=== PATIENT | female | born 1960 | race Caucasian/White ===

== ENCOUNTER → 2017-11-09 | Outpatient (CLI) | payer MEDICARE, MEDICAID ==
[~2017-11-09] MED LIST: ACCUNEB SO1.25 MG/1 INH; AMLODIPINE BESY10 MG PO; ASPIR 8181 MG PO; ATORVASTATIN CA40 MG PO; AZITHROMYCIN 2250 MG PO; BUTALB-APAP-CA1 EACH PO; CALCIUM 600 +1 EAC1 PO; CIPROFLOXACIN500 M1 PO; CLEOCIN HCL150 MG PO; CRESTOR40 MG PO; DICLOFENAC SODI75 MG PO; EFFEXOR XR75 MG PO; HYDROCHLOROTHIA25 M2 PO; HYDROCODONE-AP1 EAC6 PO; IBUPROFEN 800800 M1 PO; LISINOPRIL10 MG PO; MEDROLDOSEPACK PO; NAPROXEN DELAY500 M1 PO; NEURONTIN 300300 M1 PO; NORCO 5-325 TA1 EACH PO; ONDANSETRON HCL4 M2 PO; PAXIL10 MG PO; PEPCID20 MG PO; PRILOSEC 20 MG20 MG PO; PROMETHAZINE-C120 ML PO; REGLAN 10 MG TA10 MG PO; ROBAXIN 750 MG750 M1 PO; SYMBICORT160 MCG/4. INH; TESSALON PERLE100 MG PO
== END ==
LOC: M.RAD 09:27
DX: M47.816 Spondylosis without myelopathy or radiculopathy, lumbar region (principal); J44.9 Chronic obstructive pulmonary disease, unspecified; I10 Essential (primary) hypertension; M41.86 Other forms of scoliosis, lumbar region

== ENCOUNTER → 2017-11-15 | Outpatient (CLI) | payer MEDICARE, MEDICAID ==
[~2017-11-15] MED LIST changes: +TRAMADOL 50 MG50 MG PO
== END ==
LOC: M.MRI 07:59
DX: M48.061 Spinal stenosis, lumbar region without neurogenic claudication (principal); M54.16 Radiculopathy, lumbar region

== ENCOUNTER → 2017-11-25 | Outpatient (CLI) | payer MEDICARE, MEDICAID ==
--- NOTE | 2017-12-22 14:16 | PAINCON ---
[address] [address] PAIN MANAGEMENT CONSULTATION Name: RIAN JIMENEZ Room: [facility] EMILY Garcia#: [id number] Admission: 11/25/17 Attend Phys: Andreas Cochran MD Discharge: Date of : 62 Report #: [id number] THIS REPORT FOR: //name// CC: Suzanne Cochran DATE OF SERVICE: 11/25/2017 CHIEF COMPLAINT: Low back pain, which is more intense on the right side. HISTORY OF PRESENT ILLNESS: The patient is a 58-year-old female who has been referred to the Pain Clinic. She states that she is having pain and discomfort, which she describes as constant and aching. It involves her lower back with pain radiating to the left side as well as into the right. The patient states that she has not been able to take anti-inflammatory medications because of the side effects of swelling. She also has some problems with her kidneys. She has tried Tylenol, but does not find that this is a very helpful medication. She describes her pain as a 9/10. She feels that most activities worsen her pain. She feels that her pain is better when she is "lying down." She notes that the pain is more intense when she is lying on her left side. She has undergone an MRI, but has not discussed the findings of that test. ALLERGIES: No known drug allergies. CURRENT MEDICATIONS: Aspirin 81 mg, calcium, Tums 500 mg, Reglan, metoclopramide 10 mg, Crestor 40 mg, and venlafaxine 50 mg. PAST MEDICAL HISTORY: Hypertension, lung disease, stomach problems, emotional problems. PAST SURGICAL HISTORY: Stents placed in the right leg secondary to peripheral artery disease. SOCIAL HISTORY: She is disabled, has not worked since 2011. REVIEW OF SYSTEMS: Questionnaire indicates generally good health, recent weight changes, wears glasses, shortness of breath when walking on the flat, asthma, wheezing, back pain, depression, and insomnia. LABORATORY DATA: MRI of the lumbar spine dated 11/01/2017: 1. Foramen intact, mild broad-based disk bulge. Mild degenerative facet changes. 2. L4-L5, foramen intact. Mild broad-based disk bulging, moderate degenerative facet changes. 3. L5-S1, foramen widely patent, mild disk bulging. The bulging touches but does not compress the S1 nerve roots bilaterally. [place] [address] PAIN MANAGEMENT CONSULTATION Name: RIAN JIMENEZ Room: [facility]#: [id number] Admission: 11/25/17 Attend Phys: Andreas Cochran MD Discharge: Date of : 62 Report #: [id number] The upper SI joint is intact. PAIN CLINIC ASSESSMENT: 1. The patient states she is not being treated for osteoarthritis or rheumatoid arthritis. 2. Height 5 feet 0 inches, weight 170 pounds, BMI is 34. 3. Vital Signs: Blood pressure 144/82, heart rate 78, respiratory rate 16, room air saturation 95%, temperature 98.0. Pain intensity 9/10. 4. Fall risk: The patient has not fallen in the last 3 months. 5. Blood thinner: The patient is not on a blood thinning medication. 6. Hypertension: The patient states she was taken off lisinopril. Noted an increase in her potassium levels. 7. Opioid therapy greater than 6 weeks: The patient is not on opioid therapy. 8. Risk assessment tool. 9. Functional assessment tool. 10. Recreational drug use: The patient denies use of recreational drugs. 11. Tobacco use: The patient smokes 1 pack of cigarettes per day, has smoked for the last 20 years. 12. Alcohol: The patient denies use of alcoholic beverages on a regular basis. PHYSICAL EXAMINATION: GENERAL: The patient is a well-developed, well-nourished white female. She appears her stated age. She is alert and oriented x 3. Speech is fluent. HEENT: Normocephalic, atraumatic. Extraocular eye muscles intact. Sclerae nonicteric. Mucous membranes are moist. NECK: Without JVD or bruits. The patient states that she has been told she has a 40% blockage in her carotids. CHEST: Clear to auscultation. ABDOMEN: Nontender. Forward bending to 45 degrees causes increased back pain. Lumbar extension caused some increased pain and discomfort as well. The patient has some tattoos on the lower extremities. Left and right lateral rotation and left and right lateral bending cause some increased discomfort in the low back area. Muscle strength in the lower extremities is judged to be 4+ bilaterally. Deep tendon reflexes are +2, ankle reflexes +1. Upper extremity muscle strength is judged to be 4+/5 and biceps tendon reflexes +1. IMPRESSION: 1. Low back pain, myofascial. 2. Pulmonary emphysema. 3. Mixed hyperlipidemia. 4. Anxiety. 5. Essential hypertension. 6. Chronic fatigue syndrome. 7. Moderate episodes of recurrent major depressive disorder. 8. Peripheral vascular disease. 9. [place] [address] PAIN MANAGEMENT CONSULTATION Name: RIAN JIMENEZ Room: [facility]#: [id number] Admission: 11/25/17 Attend Phys: Andreas Cochran MD Discharge: Date of : 62 Report #: [id number] 10. Chronic tobacco use. RECOMMENDATION: We discussed treatment options with the patient. At this juncture, she has trigger points/myofascial pain in her low back area. We discussed the possible treatment of this. Her MRI does not show lumbar radicular symptoms. Most of her pain appears to be myofascial in nature. We have discussed the possibility of improving her condition through injections in the low back area with steroids and local anesthetics. The patient's MRI was pulled up on the computer. She and I reviewed it together. She will follow up in the future in the pain clinic at which time she will undergo injections for myofascial pain in the lower portion of her back. <ELECTRONICALLY SIGNED> By: Andreas Cochran MD 12/22/17 1416 1534 [id number] Cochran MD /[facility]
== END ==
LOC: M.PC 03:53
DX: M54.5 Low back pain (principal); J43.8 Other emphysema; E78.2 Mixed hyperlipidemia; F41.9 Anxiety disorder, unspecified; I10 Essential (primary) hypertension; R53.82 Chronic fatigue, unspecified; I73.9 Peripheral vascular disease, unspecified; R79.89 Other specified abnormal findings of blood chemistry

== ENCOUNTER → 2017-12-08 | Outpatient (CLI) | payer MEDICARE, MEDICAID | LOC: M.ULTRA 10:00 | DX: I25.10 Atherosclerotic heart disease of native coronary artery without angina pectoris (principal); I65.23 Occlusion and stenosis of bilateral carotid arteries; I70.8 Atherosclerosis of other arteries; I77.9 Disorder of arteries and arterioles, unspecified; J43.9 Emphysema, unspecified; Z78.0 Asymptomatic menopausal state ==

== ENCOUNTER → 2017-12-14 | Outpatient (CLI) | payer MEDICARE, MEDICAID ==
--- NOTE | 2017-12-22 14:16 | PAINCON ---
[address] [address] PAIN MANAGEMENT CONSULTATION Name: RIAN JIMENEZ [id number] Admission: 12/14/17 Attend Phys: Andreas Cochran MD Discharge: Date of : 62 Report #: [id number] THIS REPORT FOR: //name// CC: Suzanne Cochran DATE OF SERVICE: 12/14/2017 FOLLOWUP COMPLAINT: Pain in the left side greater than on the right. FOLLOWUP HISTORY: The patient is a 58-year-old female who has been referred to the pain clinic because of pain and discomfort in her low back area. Palpation in the lower portion of her back can reproduce her pain and discomfort. She has been using Tylenol and ibuprofen. She also has some problems with her kidneys. Rates her pain as a 8-9/10. Notes that her pain improves somewhat when she is lying down. Denies any trauma to her back. She notes pain and discomfort in the left posterior portion of her buttocks. She can place her finger, right on the area that is problematic. She has not had epidural steroid injections. She has not had back surgery. ALLERGIES: No known drug allergies. CURRENT MEDICATIONS: Aspirin 81 mg, calcium, Tums, Reglan, metoclopramide, Crestor 40 mg and venlafaxine 50 mg. PAIN CLINIC ASSESSMENT: 1. The patient is not being treated for osteoarthritis or rheumatoid arthritis. 2. Height 5 feet 0 inches, weight 177 pounds, BMI is 34. 3. Vital Signs: Blood pressure 124/76, heart rate 92, respiratory rate 16, room air saturation 95%, temperature 98.2. 4. Pain score 8/10. 5. Fall risk. The patient has not fallen in the last 3 months. 6. Blood thinner. The patient is not on a blood thinning medication. 7. Hypertension. The patient states that she was taken off her lisinopril that was secondary to an increase in potassium. 8. Opioid therapy greater than 6 weeks. The patient is not on an opioid therapy. 9. Risk assessment tool. The patient is low for use of opioid medications. 10. Functional assessment tool. 11. Recreational drug use. The patient denies use of recreational drugs. 12. Tobacco: The patient smokes 1 pack of cigarettes per day and has smoked for the last 20 years. 13. Alcohol: The patient denies use of alcoholic beverages on a regular basis. PHYSICAL EXAMINATION: GENERAL: The patient is a well-developed, well-nourished [place] [address] PAIN MANAGEMENT CONSULTATION Name: RIAN JIMENEZ Brandy Room: [facility]#: [id number] Admission: 12/14/17 Attend Phys: Andreas Cochran MD Discharge: Date of : 62 Report #: [id number] appears her stated age. She is alert and oriented x 3. Speech is fluent. HEENT: Normocephalic, atraumatic. Extraocular eye muscles intact. Sclerae nonicteric. The patient wears glasses. Mucous membranes are moist. NECK: Without JVD or bruits. The patient has been told that she does have a 40% blockage in her carotids. LUNGS: Clear to auscultation. ABDOMEN: Nontender. MUSCULOSKELETAL: Forward bending 45 degrees caused some increased back pain and discomfort. Palpation in the left low back area in the area of the posterior superior iliac spine and gluteus doreen/latissimus dorsi does reproduce the patient's pain and discomfort. Left and right lateral bending cause some increased discomfort in the low back area. Muscle strength in the lower muscle areas judged to be 5- bilaterally. IMPRESSION: 1. Low back pain, myofascial pain. 2. Pulmonary emphysema. 3. Hyperlipidemia. 4. Anxiety. 5. Essential hypertension. 6. Chronic fatigue syndrome. 7. Moderate episodes of recurrent major depressive disorder. 8. Peripheral vascular disease. 9. Elevated creatinine. 10. Chronic tobacco use. RECOMMENDATIONS: We discussed treatment options with the patient. Risks and benefits of a trigger point injection were discussed. Possible complications of the procedure, which could include but are not limited to infection, worsening of pain, no improvement in pain, bleeding, nerve damage were discussed. The patient elects to proceed. PROCEDURE NOTE: The patient was taken to the procedure area. She was assisted in getting on the table. She was placed perpendicular to the table. Her feet were placed in the chair. Her back was sterilely prepped with a chlorhexidine solution. Palpation of the area in the left posterior superior iliac spine near the gluteus doreen and latissimus dorsi was identified. This reproduced the patient's discomfort. A 25-gauge needle was then advanced into the area of discomfort. Total of 8 mL of 0.5% bupivacaine and 40 mg triamcinolone 40 mg Depo-Medrol were injected. The patient tolerated the procedure well. There were no complications. She remained in the pain clinic for an appropriate amount of time. She will follow up in the future as needed[place] [address] PAIN MANAGEMENT CONSULTATION Name: RIAN JIMENEZ Room: [facility]#: [id number] Admission: 12/14/17 Attend Phys: Andreas Cochran MD Discharge: Date of : 62 Report #: [id number] thank you for letting us participate in her care. We hope she continues to improve. <ELECTRONICALLY SIGNED> By: Andreas Cochran MD 12/22/17 1416 1437 2249N. Nathan Cochran MD /nt
== END | disposition home or self-care (01) ==
LOC: M.PC 04:46
DX: M79.1 Myalgia (principal); M54.5 Low back pain; G89.29 Other chronic pain; J43.8 Other emphysema; E78.5 Hyperlipidemia, unspecified; I10 Essential (primary) hypertension; I73.89 Other specified peripheral vascular diseases; F17.210 Nicotine dependence, cigarettes, uncomplicated; F41.9 Anxiety disorder, unspecified; F32.4 Major depressive disorder, single episode, in partial remission; R53.82 Chronic fatigue, unspecified; Z79.899 Other long term (current) drug therapy; Z79.82 Long term (current) use of aspirin; Z98.890 Other specified postprocedural states

== ENCOUNTER → 2018-01-18 | Outpatient (CLI) | payer MEDICARE, MEDICAID ==
--- NOTE | 2018-01-19 16:42 | PAINCON ---
[address] [address] PAIN MANAGEMENT CONSULTATION Name: RIAN JIMENEZ Room: [facility] Radha#: [id number] Admission: 01/18/18 Attend Phys: Andreas Cochran MD Discharge: Date of : 62 Report #: [id number] THIS REPORT FOR: //name// CC: Suzanne Cochran DATE OF SERVICE: 01/18/2018 PRIMARY CARE PHYSICIAN: Suzanne Caballero DO FOLLOWUP HISTORY: The patient is a 57-year-old female who has been seen in the pain clinic because of myofascial pain. She has had some worsening of her pain. She attributes a portion to the tumultuous changes that she has undergone in her life. Her oldest grandson, who is 18 years committed suicide. She has been "on her feet all this week, trying to make preparations as well as help her daughter get through this." They are not sure why the son committed suicide. No information was left by the grandson. They are grieving as one could imagine. Notes that her pain and discomfort in lower portion of her back improved after the myofascial trigger point injection. At this juncture, she has returned with a hope of proceeding with another injection. She noticed greater than 50% improvement. Rates her pain as a 7/10 at this point. Pain continues down the left low back area. ALLERGIES: No known drug allergies. CURRENT MEDICATIONS: Aspirin 81 mg, calcium, Tums, Reglan, metoclopramide, Crestor, venlafaxine 50 mg. PAIN CLINIC ASSESSMENT: 1. The patient is not being treated for osteoarthritis or rheumatoid arthritis. 2. Height 5 feet 0 inches, weight 177 pounds, BMI is 33. 3. Vital signs: Blood pressure 142/86, heart rate 80-87, respiratory rate 16, room air saturation 96%, temperature 98.2. 4. Pain intensity 11/30. 5. Fall risk. The patient has not fallen in the last 3 months. 6. Blood thinner. The patient is not on a blood thinning medication. 7. Hypertension. The patient states that she has been taken off her lisinopril secondary to increase in potassium. 8. Opioid therapy greater than 6 weeks. The patient is not on opioid medication regimen. 9. Rist risk assessment tool. The patient is low for use of opioid medication. 10. Functional assessment tool. 11. Recreational drug use. The patient denies use of recreational drugs. 12. Tobacco: The patient smokes 1 pack of cigarettes per day and has smoked for the last [place] [address] PAIN MANAGEMENT CONSULTATION Name: RIAN JIMENEZ [facility] [id number] Admission: 01/18/18 Attend Phys: Andreas Cochran MD Discharge: Date of : 62 Report #: [id number] 13. Alcohol: The patient denies use of alcoholic beverages on a regular basis. PHYSICAL EXAMINATION: GENERAL: The patient is a well-developed, well-nourished female. She appears her stated age. She is depressed secondary to the loss of her grandchild who committed suicide. Speech is fluent. HEENT: Normocephalic, atraumatic. Extraocular eye muscles intact. Sclerae nonicteric. Mucous membranes are moist. The patient wears glasses. NECK: Without JVD or bruits. The patient has been told she has 40% blockage in her carotids. LUNGS: Clear to auscultation. ABDOMEN: Nontender. MUSCULOSKELETAL: Forward bending to about 45 degrees cause some increase in back pain and discomfort. The patient has pain and discomfort in the lower portion of her back. Palpation in the area of the superior iliac spine on the left near the gluteus doreen/latissimus dorsi does reproduce the pain and discomfort, which she is experiencing. Left and right lateral bending cause some increased discomfort in the low back area. Muscle strength in the lower extremity judged to be 5-/5 bilaterally. IMPRESSION: 1. Low back pain/myofascial. 2. Pulmonary emphysema. 3. Hyperlipidemia. 4. Anxiety. 5. Essential hypertension. 6. Chronic fatigue syndrome. 7. Moderate episodes of recurrent major depressive disorder. 8. Peripheral vascular disease. 9. Elevated creatinine. 10. Chronic tobacco. RECOMMENDATIONS: We discussed treatment options with the patient. At this juncture, she continues to have pain and discomfort in the low back area. She feels that the myofascial trigger point injection at the last visit was beneficial. She would like to proceed with another injection today. Risks and benefits of the procedure were again discussed. They could include but are not limited to infection, increased muscle soreness, headache, worsening of pain, no improvement in pain and she would like to proceed. PROCEDURE NOTE: The patient was taken to the procedure room. She was assisted in getting on the table. She is set perpendicular to the table. The chair was placed on her feet. She leaned forward. Her back was sterilely prepped with a chlorhexidine solution and allowed to dry. A 25-gauge needle was then advanced into the area of the latissimus dorsi/gluteus doreen area posterior-superior iliac spine area and the trigger point was noted. A total of 80 mg Depo-Medrol [facility] [address] [place] [address] PAIN MANAGEMENT CONSULTATION Name: RIAN JIMENEZ Room: [facility] Radha#: [id number] Admission: 01/18/18 Attend Phys: Andreas Cochran MD Discharge: Date of : 62 Report #: [id number] 10 mL of 0.25% bupivacaine was injected. The patient tolerated the procedure well. She remained in the pain clinic for an appropriate amount of time. Her pain decreased down to 4/10. A script for physical therapy has been written. We would like to thank you for letting us participate in her care. We hope she continues to improve. Hopefully, she and her family find some peace and solace in the coming months/years. <ELECTRONICALLY SIGNED> By: Andreas Cochran MD 01/19/18 1642 1716 0125N. Nathan Cocharn MD /[facility]
== END | disposition home or self-care (01) ==
LOC: M.PC 04:24
DX: M79.1 Myalgia (principal); M54.16 Radiculopathy, lumbar region; I10 Essential (primary) hypertension; J43.9 Emphysema, unspecified; E78.5 Hyperlipidemia, unspecified; I73.9 Peripheral vascular disease, unspecified; F17.210 Nicotine dependence, cigarettes, uncomplicated; R53.82 Chronic fatigue, unspecified; F32.1 Major depressive disorder, single episode, moderate; F41.9 Anxiety disorder, unspecified; Z79.82 Long term (current) use of aspirin; Z79.899 Other long term (current) drug therapy

== ENCOUNTER → 2018-02-17 | Outpatient (CLI) | payer MEDICARE, MEDICAID ==
[~2018-02-17] MED LIST changes: -TRAMADOL 50 MG50 MG PO
--- NOTE | 2018-03-07 10:00 | PAINCON ---
[address] [address] PAIN MANAGEMENT CONSULTATION Name: RIAN JIMENEZ Room: [facility] EMILY Garcia#: [id number] Admission: 02/17/18 Attend Phys: Andreas Cochran MD Discharge: Date of : 62 Report #: [id number] THIS REPORT FOR: //name// CC: Suzanne Cochran DATE OF SERVICE: 02/17/2018 FOLLOW-UP COMPLAINT: "Here for medication renewal. I have noted some increased pain because I have been doing more cleaning." FOLLOW-UP HISTORY: The patient is a 57-year-old female who has been followed in the Pain Clinic. As you recall, she has myofascial pain. She has undergone trigger point injections and gleaned benefits from these. She finds that things continue to improve. She is still suffering from the recent suicide of her grandson. As you recall, he is 18 years old. He committed suicide. He went into a field and shot himself in the back of the head. His mother is still having quite a bit of problems dealing with this. She is scheduled to go back to work on 03/02/2018. The patient does not feel that she will be able to go because her daughter is still having such a difficult time with this. The patient is in contact with the authorities. She is still trying to get items from them. They are trying to get his cell phone. It is still being held in evidence. She would like to clean and get all the information off of it that she could. She rates her pain as a 2-3 today. She does feel that the pain still is problematic and would like to proceed with another injection. She had 2-3 weeks where the pain was significantly improved. She notes that she has pain in the lower portion of her back and radiates down into her left hip at times. She is hoping for another injection today. ALLERGIES: No known drug allergies. CURRENT MEDICATIONS: Aspirin 81 mg, calcium, Tums, Reglan, metoclopramide 10 mg t.i.d., Crestor 40 mg, venlafaxine 75 mg. PAIN CLINIC ASSESSMENT: 1. The patient is not being treated for osteoarthritis or rheumatoid arthritis. 2. Height 5 feet 0 inches, weight 170 pounds, BMI 33.8. 3. Vital signs: Blood pressure 137/81, heart rate 86, respiratory rate 16, room air saturation 97%, temperature 98.2. 4. Pain intensity: 2/10. 5. Fall risk: The patient has not fallen in the last 3 months. 6. Blood thinner: The patient is not on a blood thinning medication. 7. Hypertension: The patient is being treated for hypertension. 8. Opioid medication: The patient is not on opioid regimen. 9. Risk assessment tool: Low for use of opioid medication. 10. Functional [place] [address] PAIN MANAGEMENT CONSULTATION Name: RIAN JIMENEZ Brandy Room: [facility]#: [id number] Admission: 02/17/18 Attend Phys: Andreas Cochran MD Discharge: Date of : 62 Report #: [id number] 11. Recreational drug use: The patient denies use of recreational drugs. 12. Tobacco: The patient smokes 1 pack of cigarettes per day and has smoked for approximately 20 years. 13. Alcohol: The patient denies frequent use of alcoholic beverages. PHYSICAL EXAMINATION: GENERAL: The patient is a well-developed, well-nourished white female. She appears her stated age. She is alert and oriented x 3. Affect is appropriate. Speech is fluent. HEENT: Normocephalic, atraumatic. Extraocular eye muscles intact. Sclerae nonicteric. Mucous membranes are moist. The patient wears glasses. NECK: Without JVD or bruits. The patient has a history of 40% blockage in her carotid arteries. LUNGS: Clear to auscultation. ABDOMEN: Nontender. MUSCULOSKELETAL: The patient is able to move forward, bend and twist with left low back pain and discomfort. She has greater flexibility. She does have pain and discomfort and a trigger point, which she can point to in the area of the left posterior superior iliac spine, near the gluteus doreen and latissimus dorsi. Palpation in this area reproduces her discomfort. Muscle strength in the lower extremities is 5- bilaterally. IMPRESSION: 1. Low back pain/myofascial. 2. Pulmonary emphysema. 3. Hypertension. 4. Anxiety. 5. Essential hypertension. 6. Carotid artery blockage 40% in her carotids bilateral. 7. Chronic fatigue syndrome. 8. Moderate episodes of major depressive disorder. 9. Peripheral vascular disease. 10. Elevated creatinine. 11. Chronic tobacco use. RECOMMENDATIONS: We discussed treatment options with the patient. Risks and benefits of a trigger point injection were discussed. Possible complications of the procedure were reviewed. The patient does smoke. We have talked to the patient 3 minutes regarding the benefits of decreasing use of tobacco. The patient does have carotid and peripheral vascular disease, which can be exacerbated by use of tobacco. The patient will continue to try to decrease use of this entity. Possible complications of the procedure were discussed. They include increased muscle soreness, bleeding, worsening of pain, no improvement in pain, and the patient elects to proceed. PROCEDURE NOTE: The patient was assisted in getting [place] [address] PAIN MANAGEMENT CONSULTATION Name: RIAN JIMENEZ Room: [facility]#: [id number] Admission: 02/17/18 Attend Phys: Andreas Cochran MD Discharge: Date of : 62 Report #: [id number] She sat perpendicular to the table. A chair was placed under her feet. Her back was sterilely prepped with a chlorhexidine solution and allowed to dry. Trigger point was noted in the left posterior superior iliac spine area, near the gluteus doreen and latissimus dorsi. A 25-gauge needle was advanced into the area. The patient states this did reproduce her discomfort. A total of 80 mg of Depo-Medrol with 10 mL of 0.5% bupivacaine was injected. The patient tolerated the procedure well. She remained in the Pain Clinic for an appropriate amount of time. She will follow up in the future as needed. We would like to thank you for letting us participate in her care. We hope she continues to improve. <ELECTRONICALLY SIGNED> By: Andreas Cochran MD 03/07/18 1000 [id number] Cochran MD /nt
== END | disposition home or self-care (01) ==
LOC: M.PC 04:53
DX: M79.1 Myalgia (principal); M54.5 Low back pain; I10 Essential (primary) hypertension; I73.9 Peripheral vascular disease, unspecified; I65.23 Occlusion and stenosis of bilateral carotid arteries; F17.210 Nicotine dependence, cigarettes, uncomplicated; J43.9 Emphysema, unspecified; F32.1 Major depressive disorder, single episode, moderate; R53.82 Chronic fatigue, unspecified; F41.9 Anxiety disorder, unspecified; Z79.82 Long term (current) use of aspirin; Z79.899 Other long term (current) drug therapy; Z98.890 Other specified postprocedural states

== ENCOUNTER → 2018-03-17 | Outpatient (CLI) | payer MEDICARE, MEDICAID ==
--- NOTE | 2018-04-06 16:20 | PAINCON ---
[address] [address] PAIN MANAGEMENT CONSULTATION Name: RIAN JIMENEZ Room: [facility] Garcia#: [id number] Admission: 03/17/18 Attend Phys: Andreas Cochran MD Discharge: Date of : 62 Report #: [id number] THIS REPORT FOR: //name// CC: Suzanne Cochran DATE OF SERVICE: 03/17/2018 CHIEF COMPLAINT: "I was lifting a mattress and box-springs, it hurt my back." FOLLOWUP HISTORY: The patient is a very pleasant 57-year-old female who has been followed in the Pain Clinic because of myofascial pain. She was working with her daughter. She and her daughter were in the basement. There was a mattress and box-springs. Water had soaked the mattress. Somewhat heavy. They removed it from the basement, out of the basement. After moving the mattress, she has noted a worsening of pain in her low back as well as in her hip area. She has had trigger point injections in this area before. That was quite helpful. Overall, things were going reasonably well until she did this procedure. At this juncture, she would like to have another trigger point injection. She and her daughter are still mourning the of her grandson who would be 19 at this juncture. As you may recall, he took his life. Shot himself. His birthday is tomorrow. She and other family members are gathering to release the balloons in his memory. She feels that her daughter is trying to return to work and get back into activities of daily living. ALLERGIES: No known drug allergies. CURRENT MEDICATIONS: Aspirin 81 mg, calcium, Tums, Reglan, metoclopramide 10 mg t.i.d., Crestor 40 mg, and venlafaxine 75 mg. PAIN CLINIC ASSESSMENT/PQRS: 1. The patient has not been treated for rheumatoid arthritis or osteoarthritis. 2. Height 5 feet 0 inches, weight 178 pounds, BMI 34.1. 3. Vital signs: Blood pressure 147/88, heart rate 86, respiratory rate 16, room air saturation is 97%, and temperature 97.7. 4. Pain intensity 07/03. 5. Fall risk. The patient has not fallen in the last 3 months. 6. Blood thinner. The patient is not on a blood thinning medication. 7. Hypertension. The patient is being treated for hypertension. 8. Opioid medications. The patient is not being treated with opioids. 9. Risk assessment tool, low for opioid use. 10. Functional assessment tool. 11. Recreational drug use. The patient denies use of recreational drugs. 12. Tobacco: The patient smokes 1 pack of cigarettes per day, has smoked for [facility] [address] [place] [address] PAIN MANAGEMENT CONSULTATION Name: RIAN JIMENEZ Brandy Room: [facility]#: [id number] Admission: 03/17/18 Attend Phys: Andreas Cochran MD Discharge: Date of : 62 Report #: [id number] approximately 20 years. We discussed the benefits of decreasing smoking. 13. Alcohol: The patient denies use of frequent alcoholic beverages. PHYSICAL EXAMINATION: GENERAL: The patient is a well-developed, well-nourished white female, appears her stated age. She is alert and oriented x 3. Speech is fluent. HEENT: Extraocular eye muscles intact. Sclerae nonicteric. Mucous membranes are moist. The patient is wearing her glasses. NECK: Without JVD or bruits. The patient has a history of 40% blockage in her carotid arteries. LUNGS: Clear to auscultation without rhonchi or rales. ABDOMEN: Nontender. Bowel sounds positive. MUSCULOSKELETAL: Without significant scoliosis, kyphosis or lordosis. The patient has some limitation in forward bending, left and right lateral rotation because of pain and discomfort in her back. She is able to put her finger right on the trigger point in the posterior portion of her back near the posterior iliac spine area. This area is near the gluteus doreen and latissimus dorsi. Palpation in this area causes the patient to jump. Muscle strength in the lower extremities is judged to be 5/5 bilaterally. IMPRESSION: 1. Low back pain/myofascial exacerbated after lifting a wet mattress and box-springs. 2. Pulmonary emphysema. 3. Hypertension. 4. Anxiety. 5. Essential hypertension. 6. Carotid artery blockage 40% in her carotids bilaterally. 7. Chronic fatigue syndrome. 8. Moderate episodes of major depressive disordered. 9. Peripheral vascular disease. 10. Elevated creatinine. 11. Chronic tobacco use. RECOMMENDATIONS: We discussed treatment options with the patient. At this juncture, she would like to proceed with a trigger point injection to the affected area. Trigger points in the past have been quite effective. She was doing reasonably well and thought that things would continue until she lifted the mattress. She has returned today for an injection. Risks and benefits of the procedure were again discussed with the patient. They include but are not limited to infection, increased muscle soreness, no improvement of pain, nerve damage. The patient elects to proceed. PROCEDURE NOTE: The patient was placed in the sitting position. She was placed perpendicular to the bed. A chair was placed under her feet. She leaned forward. Her back was sterilely prepped with a Betadine solution. A 25-[place] [address] PAIN MANAGEMENT CONSULTATION Name: RIAN JIMENEZ Room: [facility]#: [id number] Admission: 03/17/18 Attend Phys: Andreas Cochran MD Discharge: Date of : 62 Report #: [id number] needle was then advanced into the area of the left posterior superior iliac spine area near the gluteus doreen and latissimus dorsi. The trigger point was noted. A total of 10 mL of 0.5% bupivacaine and 80 mg Depo-Medrol was injected. The patient tolerated the procedure well. There were no complications. She remained in the Pain Clinic for an appropriate amount of time. She will follow up in the future as needed. We would like to thank you for letting us participate in her care. We hope she continues to improve. <ELECTRONICALLY SIGNED> By: Andreas Cochran MD 04/06/18 1620 [id number]. Nathan Cochran MD /nt
== END | disposition home or self-care (01) ==
LOC: M.PC 04:41
DX: M79.18 Myalgia, other site (principal); J43.8 Other emphysema; I10 Essential (primary) hypertension; F41.9 Anxiety disorder, unspecified; I65.29 Occlusion and stenosis of unspecified carotid artery; F32.9 Major depressive disorder, single episode, unspecified; I73.9 Peripheral vascular disease, unspecified; Z87.891 Personal history of nicotine dependence; R53.82 Chronic fatigue, unspecified

== ENCOUNTER 2018-04-06 09:24 | Emergency (ER) | payer MEDICARE, MEDICAID ==
[~2018-04-06] VITALS: Ht 152.4 cm; Wt 81.2 kg
[~2018-04-06 09:24] MED LIST changes: -CLEOCIN HCL150 MG PO
[2018-04-06] MEDS ORDERED: REGLAN 10 MG TA10 MG PO (09:35)
[2018-04-06] MEDS ORDERED: CLEOCIN HCL150 MG PO (10:49)
[2018-04-06] MEDS ORDERED: NORCO 5-325 TA1 EACH PO (10:50)
[2018-04-06 11:20] VITALS: BP 175/94
[2018-04-19] MEDS ORDERED: NORCO 5-325 TA1 EACH PO (08:09)
[2018-04-19] MEDS ORDERED: TRAMADOL 50 MG50 MG PO (08:25)
== END 2018-04-06 11:20 | disposition home or self-care (01) ==
LOC: M.ERS 09:24
DX: K04.7 Periapical abscess without sinus (principal); J44.9 Chronic obstructive pulmonary disease, unspecified; M46.96 Unspecified inflammatory spondylopathy, lumbar region; F32.9 Major depressive disorder, single episode, unspecified; I10 Essential (primary) hypertension; E78.00 Pure hypercholesterolemia, unspecified; F17.210 Nicotine dependence, cigarettes, uncomplicated

== ENCOUNTER → 2018-04-19 | Outpatient (CLI) | payer MEDICARE, MEDICAID ==
[~2018-04-19] MED LIST changes: +CLEOCIN HCL150 MG PO; +TRAMADOL 50 MG50 MG PO
--- NOTE | ~2018-04-19 | PAINCON ---
[address] [address] PAIN MANAGEMENT CONSULTATION Name: RIAN JIMENEZ Room: [facility] Garcia#: [id number] Admission: 04/19/18 Attend Phys: Andreas Cochran MD Discharge: Date of : 62 Report #: [id number] THIS REPORT FOR: //name// CC: Suzanne Cochran DATE OF SERVICE: 04/19/2018 FOLLOWUP COMPLAINT: "The pain has returned again." FOLLOWUP HISTORY: The patient is a 57-year-old female who has been followed in the pain clinic. As you recall, she has complained of myofascial pain in her low back area. She and her daughter were in the basement. They had a set of mattresses and back box [place]. The water had soaked a mattress because of its weight. The patient notes some increased pain and discomfort after lifting it and removing it from the basement. She does note that her pain has continued to be some problematic. She has trigger point injection in the past have been helpful. Continues to find that the pain is uncomfortable. States that she is bending and doing stretching exercises to help decrease her pain and discomfort. At this juncture it is increased to the level that she feels another injection would be beneficial at this juncture. The patient recently had an infected tooth. She was seen by her dentist. She was given some hydrocodone. [place] the hydrocodone is efficacious in decreasing the mouth pain as well as the pain in the lower portion of her back. States that her jaw swollen up and she looked like a chipmunk. As you recall, she is still in the morning with her daughter in regards to her 19-year-old grandson. As you recall, he shot himself and took his life. ALLERGIES: No known drug allergies. CURRENT MEDICATIONS: Aspirin 81 mg, calcium, Tums, Reglan, metoclopramide 10 mg t.i.d., Crestor 40 mg, and venlafaxine 75 mg. PAIN CLINIC ASSESSMENT/PQRS: 1. The patient has not been treated for rheumatoid arthritis or osteoarthritis: 2. Height 5 feet 0 inches, weight 181 pounds, BMI 35. 3. Vital signs: Blood pressure 138/81, heart rate 85, respiratory rate 16, room air saturation 93%, temperature 98.3. 4. Pain intensity 07/31. 5. Fall risk. The patient has not fallen in the last 3 months. 6. Blood thinner. The patient is not on a blood thinning medication. 7. Hypertension. The patient is being treated for hypertension. 8. Opioid medications. The patient is not being treated with opioid medications. 9. Risk assessment tool, low [place] [address] PAIN MANAGEMENT CONSULTATION Name: RIAN JIMENEZ Brandy Room: [facility]#: [id number] Admission: 04/19/18 Attend Phys: Andreas Cochran MD Discharge: Date of : 62 Report #: [id number] 10. Functional assessment tool. 11. Recreational drug use. The patient denies use of recreational drugs. 12. Tobacco: The patient smokes 1 pack of cigarettes per day, has smoked for the last 20 years. Discussed the benefits of decreasing tobacco use. 13. Alcohol: The patient denies use of frequent alcohol beverage consumption. PHYSICAL EXAMINATION: GENERAL: The patient is a well-developed, well-nourished white female. Appears her stated age. She is alert and oriented x3. HEAD, EYES, EARS, NOSE, AND THROAT: Normocephalic, atraumatic. Extraocular eye muscles intact. Sclerae nonicteric. Mucous membranes are moist. The patient has some continued soreness in her mouth. Unable to place her dentures. NECK: Without adenopathy or JVD. The patient has history of coronary artery stenosis with a 40% blockage. LUNGS: Clear to auscultation without rhonchi or rales. ABDOMEN: Nontender. Bowels sounds positive. MUSCULOSKELETAL: Without significant scoliosis, kyphosis or lordosis. The patient has pain and discomfort in the left lobe of her back area. Palpation in the left posterior area causes a reproduction of pain and discomfort, which trigger point in the area of the left posterior superior iliac spine near the iliac crest. The patient has a positive jump sign. Upper and lower extremity muscle strength is judged to be 5/5 for the major muscle groups. IMPRESSION: 1. History of low back pain/myofascial pain exacerbated with lifting the wet mattress and box spring. 2. Pulmonary emphysema. 3. Hypertension. 4. Anxiety. 5. Essential hypertension. 6. Carotid artery blockade 40% in the carotids bilaterally. 7. Chronic fatigue syndrome. 8. Moderate episodes of major depressive disorder. 9. Peripheral vascular disease. 10. Elevated creatinine. 11. Chronic tobacco use. RECOMMENDATIONS: We discussed treatment options with the patient. At this juncture, we will proceed with another trigger point injection. The patient has gleaned greater than 90% improvement with the injections. She has noticed a recurrence of her pain. We discussed stretching exercises. The patient states that she continues to stretch. Notes that there is some improvement with stretching. She has returned today with a desire to undergo a trigger point injection to the affected area. We will proceed. Risks and benefits of the procedure were again reviewed with the patient. They include infection, worsening of pain, no improvement in pain, nerve damage, paralysis/[place] [address] PAIN MANAGEMENT CONSULTATION Name: RIAN JIMENEZ Brandy Room: [facility]#: [id number] Admission: 04/19/18 Attend Phys: Andreas Cochran MD Discharge: Date of : 62 Report #: [id number] leg weakness with use of local anesthetic. The patient elects to proceed. PROCEDURE NOTE: The patient was placed in the sitting position. She has perpendicular to the bed. A chair was placed under her feet. She leans forward. Trigger point was noted in the left posterior superior iliac spine near the left low back area. A 25-gauge needle was then advanced in the area of the gluteus doreen and latissimus dorsi. Trigger point was acknowledged. A total of 10 mL of 0.5% bupivacaine and 80 mg Depo-Medrol was injected. The patient tolerated the procedure well. She remained in the Pain Clinic for an appropriate amount of time. She will continue to stretch. She will call us if she has any concerns. We would like to thank you for letting us to participate in her care. We hope she continues to improve. By: [id number]. Nathan Cochran MD /PMT
== END | disposition home or self-care (01) ==
LOC: M.PC 04:52
DX: M79.18 Myalgia, other site (principal); M54.5 Low back pain; I10 Essential (primary) hypertension; F41.9 Anxiety disorder, unspecified; J43.9 Emphysema, unspecified; R53.82 Chronic fatigue, unspecified; F32.1 Major depressive disorder, single episode, moderate; F17.210 Nicotine dependence, cigarettes, uncomplicated; I73.9 Peripheral vascular disease, unspecified; Z79.82 Long term (current) use of aspirin; Z79.899 Other long term (current) drug therapy

== ENCOUNTER → 2018-06-07 | Outpatient (CLI) | payer MEDICARE, MEDICAID ==
[~2018-06-07] MED LIST changes: +BUTRANS1 EAC1 TRANSDERM; +MOBIC15 MG PO
--- NOTE | ~2018-06-07 | PAINCON ---
[address] [address] PAIN MANAGEMENT CONSULTATION Name: RIAN JIMENEZ [facility] [id number] Admission: 06/07/18 Attend Phys: Andreas Cochran MD Discharge: Date of : 62 Report #: [id number] THIS REPORT FOR: //name// CC: SAPNA JALLOH DO Sapna Cochran DATE OF SERVICE: 06/07/2018 CHIEF COMPLAINT: Low back pain and left hip pain. HISTORY OF PRESENT ILLNESS: The patient is a 57-year-old female who has been seen in the Pain Clinic on a number of occasions. She complains of pain and discomfort in the lower portion of her back. She has had treatment with trigger point injections. She has undergone trigger point injections and noted improvement. She has had problems since she and her daughter decided to remove a set of box springs from the basement and the mattress with waterlogged. Since that time, she has had pain and discomfort after lifting it. She has undergone trigger point injections and gleaned some benefit. Unfortunately, the pain continues to return. She has been performing stretching exercises. She has used tramadol. She feels that that medication has not been very helpful. She finds that her pain continues to limit her activity. We ordered a Butrans patch for the patient, her insurance company has denied this. She rates her pain as 4/10 at this juncture. She feels that she is unable to get much done because of this chronic pain. As you may recall, her grandson committed suicide by shooting himself in the head in about February. She is still grappling with that problem. Notes that her pain is exacerbated with most activity, with cold temperatures. Walking, standing, climbing stairs, bending and lifting are problematic. ALLERGIES: No known drug allergies. CURRENT MEDICATIONS: Aspirin 81 mg, calcium, Tums, Reglan, metoclopramide 10 mg t.i.d., Crestor 40 mg, venlafaxine 75 mg, tramadol 50 mg q. 6 hours p.r.n. PAIN CLINIC ASSESSMENT AND PQRS: 1. The patient is not being treated for rheumatoid arthritis or osteoarthritis: 2. Height 5 feet 0 inches, weight 180 pounds, BMI is 35.4. 3. Vital signs: Blood pressure 138/63, heart rate 89, respiratory rate 16, room air saturation 96%, temperature 97.7. 4. Pain intensity: 4/10. 5. Fall history: The patient has not fallen in the last 3 months. 6. Blood thinner: The patient is not on a blood thinning medication. 7. Hypertension: The patient is being treated for hypertension. 8. Opioid greater than 6 weeks: The patient is not receiving opioid medications. She has been tried on tramadol and finds this ineffective, [place] [address] PAIN MANAGEMENT CONSULTATION Name: RIAN JIMENEZ [facility] [id number] Admission: 06/07/18 Attend Phys: Andreas Cochran MD Discharge: Date of : 62 Report #: [id number] been continuing to have pain. 9. Risk assessment tool: Low for opioid use. 10. Functional assessment tool. 11. Recreational drug use: The patient denies use of recreational drugs. 12. Tobacco: The patient smokes 1 pack of cigarettes per day and has smoked for the last 20 years. Discussed again the risks and benefits of decreasing/cessation of tobacco. 13. Alcohol: The patient denies frequent use of alcoholic beverages. PHYSICAL EXAMINATION: GENERAL: The patient is a well-developed, well-nourished, white female. She appears her stated age. She is alert and oriented x 3. Her affect is appropriate. Speech is fluent. HEENT: Normocephalic, atraumatic. Extraocular eye muscles intact. Sclerae nonicteric. Mucous membranes are moist. The patient is wearing glasses. NECK: Without adenopathy or JVD. HEART: Regular rate. LUNGS: Clear to auscultation without rhonchi or rales. ABDOMEN: Nontender. Bowel sounds present. MUSCULOSKELETAL: Without significant scoliosis, kyphosis or lordosis. The patient has pain and discomfort in the left lower portion of her back. Palpation near the left and right posterior and superior iliac spine areas cause pain and discomfort. The patient notes that bending, twisting, and activities of daily living are quite compromised because of the pain. She does have a positive jump sign when pressed at the trigger point areas. Lower extremity muscle strength is judged to be overall 5/5 for the major muscle groups. IMPRESSION: 1. History of low back pain, exacerbated with lifting of a wet mattress and box spring. 2. History of pulmonary emphysema. 3. Hypotension. 4. Anxiety. 5. Essential hypertension. 6. Carotid artery blockade, 40% in the carotids bilaterally. 7. Chronic fatigue syndrome. 8. Moderate episodes of major depressive disorder. 9. Peripheral vascular disease. 10. Elevated creatinine. 11. Chronic tobacco use. RECOMMENDATIONS: We discussed treatment options with the patient. The patient states that her pain continues to be problematic. She has gleaned 90% improvement with injections. She has had a number of them in the last few months. It does not appear to be lasting more than a number of weeks. At this juncture, she would like to try a different [place] [address] PAIN MANAGEMENT CONSULTATION Name: RIAN JIMENEZ Brandy Room: [facility]anieR[facility]#: [id number] Admission: 06/07/18 Attend Phys: Andreas Cochran MD Discharge: Date of : 62 Report #: [id number] had some problem with her teeth. She was prescribed hydrocodone 5 mg by her dentist. It was felt that that not only helped her teeth, but significantly improved her low back pain and discomfort. She would like to try a low dose of this medication. We discussed using Butrans, her insurance company denies it at this juncture. She feels that she is unable to get activities conducted during the course of day. As you recall, she still is grieving over her grandson's suicide in February. We will provide the patient with hydrocodone 5 mg tablets. We again have discussed the use of opioid medications buttermaker. We explained to the patient that in [facility], these medications can be problematic. We explained that chronic use of these medications often times will become less effective over a period of time as well because of development of tolerance. We must use these medications sparingly and in the smallest amount necessary. A script for her medications have been written. She will call us if she has any concerns. We would like to thank you for letting us participate in her care. We hope she continues to improve. By: [id number]. Nathan Cochran MD /nt
== END ==
LOC: M.PC 10:00
DX: J43.9 Emphysema, unspecified (principal); M54.5 Low back pain; I10 Essential (primary) hypertension; F41.9 Anxiety disorder, unspecified; F17.200 Nicotine dependence, unspecified, uncomplicated; G89.29 Other chronic pain; R79.89 Other specified abnormal findings of blood chemistry; I73.9 Peripheral vascular disease, unspecified; F32.9 Major depressive disorder, single episode, unspecified; I65.29 Occlusion and stenosis of unspecified carotid artery

== ENCOUNTER → 2018-07-05 | Outpatient (CLI) | payer MEDICARE, MEDICAID ==
[~2018-07-05] MED LIST changes: +VOLTAREN GEL 1100 G1 TOP
--- NOTE | 2018-07-08 13:53 | PAINCON ---
[address] [address] PAIN MANAGEMENT CONSULTATION Name: RIAN JIMENEZ [facility] [id number] Admission: 07/05/18 Attend Phys: Andreas Cochran MD Discharge: Date of : 62 Report #: [id number] THIS REPORT FOR: //name// CC: Suzanne Cochran DATE OF SERVICE: 07/05/2018 CHIEF COMPLAINT: Continued pain and discomfort. The patient complains of pain and discomfort in the low back area. Notes that activities of daily living can precipitate worsening of her pain. Notes that if she is sweeping, taking out the trash, washing, bending all of these activities can increase her low back pain and discomfort. It involves the lower portion of her back and the area of her left hip is most problematic. Feels that there is swelling and soreness in this area. The patient felt that use of Mobic may be irritating her skin on her face. She would like to try another medication. Rates her pain as 2/10 at this juncture. Pain is worse when walking in the cold, standing, climbing stairs, lifting, bending, and she has undergone trigger point injections in the past. We have tried to use BuTrans patches, but her insurance company declines their use. As you may recall, she has a grandson who in 02/2018 committed suicide by shooting himself in the head. She is still grappling with that. ALLERGIES: No known drug allergies. CURRENT MEDICATIONS: Aspirin 81 mg, calcium, Tums, Reglan, metoclopramide 10 mg t.i.d., Crestor 40 mg, Venlafaxine 75 mg, tramadol 50 mg q. 6 hours p.r.n. PAIN CLINIC ASSESSMENT/PQRS: 1. The patient is not being treated for rheumatoid arthritis or osteoarthritis. 2. Height 5 feet 0 inches, weight 185 pounds, BMI is 36.2. 3. Vital Signs: The patient's blood pressure 131/72, heart rate 88, respiratory rate 16, room air saturation is 95%. Temperature 97.3. 4. Pain score 2/10. 5. Fall history: The patient has not fallen in the last 3 months. 6. Blood thinner. The patient is not on a blood thinning medication. 7. Hypertension. The patient is being treated for hypertension. 8. Opioid. Greater than 6 weeks, the patient receives this medication from one source, the pain clinic. 9. Risk assessment tool for opioid use is low. 10. Functional assessment tool. 11. Recreational drug use. The patient denies use of recreational drugs. 12. Tobacco: The patient continues to smoke cigarettes 1 pack of cigarettes per day, has smoked for last 20 years. Discussed the risks and benefits of smoking cessation with the patient. 13. Alcohol: The patient [place] [address] PAIN MANAGEMENT CONSULTATION Name: RIAN JIMENEZ Room: [facility]#: [id number] Admission: 07/05/18 Attend Phys: Andreas Cochran MD Discharge: Date of : 62 Report #: [id number] PHYSICAL EXAMINATION: GENERAL: The patient is a well-developed, well-nourished white female. Appears her stated age. She is alert and oriented x 3. Her affect is appropriate. Speech is fluent. HEENT: Normocephalic, atraumatic. Extraocular muscles intact. Sclerae nonicteric. Mucous membranes are moist. The patient is wearing glasses. NECK: Without adenopathy or JVD. HEART: Rate regular. LUNGS: Clear to auscultation without rhonchi or rales. ABDOMEN: Nontender. Bowel sounds present. MUSCULOSKELETAL: Without significant scoliosis, kyphosis or lordosis. The patient has some discomfort in the left lower portion of her back. Palpation in the posterior area does make note of some trigger points. Bending, twisting and other movements of her back can increase her back pain and discomfort. IMPRESSION: 1. History of back pain exacerbated with lifting a wet mattress and box springs. History of pulmonary emphysema. 2. Anxiety. 3. Essential hypertension. 4. Carotid artery blockade 40% in the carotids bilaterally. 5. Chronic fatigue syndrome. 6. Moderate episodes of major depressive disorder. 7. Peripheral vascular disease. 8. Elevated creatinine. 9. Chronic tobacco use. RECOMMENDATIONS: We discussed treatment options with the patient. At this juncture, she feels that the Mobic medication may be causing some problems with a rash on her face. She would like to stop that medication. She will be provided with Voltaren gel. We will see whether or not this is more beneficial. A script for her hydrocodone 5/325 one p.o. b.i.d. have been rewritten. The patient will call us if she has any concerns. We would like to thank you for letting us participate in her care. We hope she continues to improve. <ELECTRONICALLY SIGNED> By: Andreas Cochran MD 07/08/18 1353 [id number]. Nathan Cochran MD /nt
== END ==
LOC: M.PC 04:02
DX: M54.5 Low back pain (principal); G89.29 Other chronic pain; I10 Essential (primary) hypertension; I65.23 Occlusion and stenosis of bilateral carotid arteries; R53.82 Chronic fatigue, unspecified; I73.9 Peripheral vascular disease, unspecified; F41.9 Anxiety disorder, unspecified; F17.200 Nicotine dependence, unspecified, uncomplicated; R79.89 Other specified abnormal findings of blood chemistry; J43.9 Emphysema, unspecified; F32.9 Major depressive disorder, single episode, unspecified; Z79.899 Other long term (current) drug therapy

== ENCOUNTER → 2018-07-25 | Outpatient (CLI) | payer MEDICARE, MEDICAID | LOC: M.RAD 08:34 | DX: M85.80 Other specified disorders of bone density and structure, unspecified site (principal); Z78.0 Asymptomatic menopausal state ==

== ENCOUNTER → 2018-08-02 | Outpatient (CLI) | payer MEDICARE, MEDICAID ==
[~2018-08-02] MED LIST changes: +NABUMETONE 750750 M1 PO
--- NOTE | ~2018-08-02 | PAINCON ---
[address] [address] PAIN MANAGEMENT CONSULTATION Name: RIAN JIMENEZ Room: [facility] EMILY Garcia#: [id number] Admission: 08/02/18 Attend Phys: Andreas Cochran MD Discharge: Date of : 62 Report #: [id number] THIS REPORT FOR: //name// CC: Suzanne Cochran DATE OF SERVICE: 08/02/2018 CHIEF COMPLAINT: Here for medication renewal. HISTORY: The patient is a 58-year-old female who has been followed in the Pain Clinic. Complains of chronic back pain. She has had myofascial pain, which has been treated with trigger point injections. She has noted some benefit from that, but continues to have pain, which continues to be problematic. Notes that activities such as sweeping carrying trash washing bending and activities at home. Provoke her back can worsen her discomfort. Also, has some pain in the left hip. She feels that the tramadol medication has not been as effective. She would like to have her medications renewed. Feels that the hydrocodone medication might be better. States that she has used hydrocodone in the past. As you recall, she did instill grieving for the loss of her grandson in 02/2018. She committed suicide by self-inflicted gunshot wound to the head. CURRENT MEDICATIONS: Aspirin 81 mg, calcium, Tums, Reglan, metoclopramide 10 mg t.i.d., Crestor 40 mg, venlafaxine 75 mg, tramadol 50 mg q.6. hours have been used. PAIN CLINIC ASSESSMENT/PQRS: 1. The patient is not being treated for rheumatoid arthritis or osteoarthritis. 2. VITAL SIGNS: Blood pressure 136/84, heart rate 75, respiratory rate 16, room air saturation 96%, temperature 97.33. 3. Pain intensity 3-4/10. 4. Fall history. The patient has not fallen in the last 3 months. 5. Blood thinner. The patient is not on blood thinning medication. 6. Hypertension. The patient is being treated for hypertension. 7. Opioid greater than 6 weeks. The patient [facility]. 8. Risk assessment tool for opioids, moderate. 9. Functional assessment too. 10. Recreational drug use. The patient denies use of recreational drug use. 11. Tobacco: The patient continues to smoke 1 pack of cigarettes per day. Has smoked for the last 20 years. Again, we discussed the risks and benefits of smoking cessation. 12. Alcohol: The patient denies use of chronic alcohol use. PHYSICAL EXAMINATION: GENERAL: The patient is a well-developed, well-[place] [address] PAIN MANAGEMENT CONSULTATION Name: RIAN JIMENEZ Room: [facility]#: [id number] Admission: 08/02/18 Attend Phys: Andreas Cochran MD Discharge: Date of : 62 Report #: [id number] her stated age. She is alert and oriented x 3. Affect is appropriate. Speech is fluent. HEENT: Normocephalic, atraumatic. Extraocular eye muscles intact. Sclerae nonicteric. Mucous membranes are moist. NECK: Without adenopathy or JVD. HEART: S1, S2. LUNGS: Clear to auscultation without rhonchi. ABDOMEN: Nontender. Bowel sounds present. MUSCULOSKELETAL: Without significant scoliosis, kyphosis or lordosis. The patient has pain and discomfort in the lower portion of her back near the left as well as the right posterior superior iliac spine area. The patient has a trigger point to this area. Bending, twisting and other motions increased pain and discomfort in low back area. IMPRESSION: 1. History of back pain exacerbated after lifting the wet mattress with her daughter. 2. History of pulmonary emphysema. 3. Anxiety. 4. Essential hypertension. 5. Carotid blockage 40% in the carotids bilaterally. 6. Chronic fatigue syndrome. 7. Moderate episodes of major depressive disorder. 8. Peripheral vascular disease. 9. Elevated creatinine. 10. Chronic tobacco use. RECOMMENDATIONS: We discussed treatment options with the patient. At this juncture, we will continue with her medications. Again, we discussed the possible complications use of opioid medications. They could become less effective secondary to toxic tolerance. Also, some patient's skin noted addicted to these medications. The patient feels that the medications are helpful. She is able to engage and get more done at this juncture. We will continue with her current medical regimen. She will call us if she has any concerns. A script for her medications of Voltaren gel 100 mg, hydrocodone 5/325, ____ 750 mg, quantity 30 have been written. We would like to thank you for letting us participate in her care. We hope she continues to improve. By: [id number]. Nathan Cochran MD /nt
== END ==
LOC: M.PC 05:00
DX: M54.5 Low back pain (principal); J43.8 Other emphysema; I10 Essential (primary) hypertension; R53.82 Chronic fatigue, unspecified; I73.9 Peripheral vascular disease, unspecified; I65.23 Occlusion and stenosis of bilateral carotid arteries; F17.200 Nicotine dependence, unspecified, uncomplicated; F32.9 Major depressive disorder, single episode, unspecified; F41.9 Anxiety disorder, unspecified; R79.89 Other specified abnormal findings of blood chemistry; Z79.899 Other long term (current) drug therapy

== ENCOUNTER → 2018-08-26 | Outpatient (CLI) | payer MEDICARE, MEDICAID ==
[~2018-08-26] MED LIST changes: +FLEXERIL PO
== END ==
LOC: M.CT 08:07
DX: J98.4 Other disorders of lung (principal); I25.10 Atherosclerotic heart disease of native coronary artery without angina pectoris

== ENCOUNTER → 2018-08-30 | Outpatient (CLI) | payer MEDICARE, MEDICAID ==
--- NOTE | ~2018-08-30 | PAINCON ---
[address] [address] PAIN MANAGEMENT CONSULTATION Name: RIAN JIMENEZ Room: [facility] EMILY Garcia#: [id number] Admission: 08/30/18 Attend Phys: Andreas Cochran MD Discharge: Date of : 62 Report #: [id number] THIS REPORT FOR: //name// CC: Suzanne Cochran DATE OF SERVICE: 08/30/2018 CHIEF COMPLAINT: Here for medication renewal, still having pain in my back. FOLLOWUP HISTORY: The patient is a 58-year-old female. Continues to have pain and discomfort in the lower portion of her back. She has undergone trigger point injections. States that she has undergone stretching exercises. Still has pain, which is problematic in the low back area. Activities of daily living still remain problematic. She notes that the pain improves somewhat when she uses a heating pad. Stretching is helpful. Notes some improvement in pain after her shower. Continues to have some pain that goes down into her hip. Feels that there is some involvement of her left leg as well. She has returned today for renewal of her medications. Feels that the hydrocodone medication is helpful. Has been taking the medications as prescribed. As you recall, she still is suffering from the repercussions of her grandson who took his life in 02/2018 with a gunshot wound, self-inflicted. CURRENT MEDICATIONS: Aspirin 81 mg, calcium, Tums, Reglan, metoclopramide 10 mg t.i.d., Crestor 40 mg, venlafaxine 75 mg, tramadol 50 mg has been used. PAIN CLINIC ASSESSMENT AND PQRS: 1. The patient is not being treated for rheumatoid arthritis or osteoarthritis. 2. Height is 5 feet 3 inches, weight 187 pounds, BMI 36.7. 3. Vital signs: Blood pressure 144/44, heart rate 79, respiratory rate 16, room air saturation 97%, temperature 98.0. 4. Pain intensity, 10. 5. Fall history. The patient has not fallen in the last 3 months. 6. Blood thinner. The patient is not on a blood thinning medication. 7. Hypertension. The patient is being treated for hypertension. 8. Opioid greater than 6 weeks. The patient received medication to the pain clinic. 9. Risk assessment tool, moderate for opioid use. 10. Functional assessment tool. 11. Recreational drug use. The patient denies use of recreational drugs. 12. Tobacco: The patient continues to smoke cigarettes. We have discussed the benefits of smoking cessation. 13. Alcohol: The patient denies chronic use of alcoholic beverages. PHYSICAL EXAMINATION: GENERAL: The patient is a well-developed, well-nourished, [place] [address] PAIN MANAGEMENT CONSULTATION Name: RIAN JIMENEZ Room: [facility]#: [id number] Admission: 08/30/18 Attend Phys: Andreas Cochran MD Discharge: Date of : 62 Report #: [id number] Appears her stated age. She is alert and oriented x 3. Her affect is appropriate. Speech is fluent. HEENT: Normocephalic, atraumatic. Extraocular eye muscles intact. The patient is wearing glasses. HEART: Regular rate. S1, S2. LUNGS: Clear to auscultation without rhonchi or rales. ABDOMEN: Nontender. Bowel sounds present. MUSCULOSKELETAL: Upper extremity muscle strength is judged to be 5/5 for the major muscle groups in the upper extremity. Lower extremity, the patient without significant scoliosis, kyphosis or lordosis. Does complain of pain and discomfort in the lower portion of her back and involves some pain in the right posterior-superior iliac spine area. He has had trigger point injections. Notes increased discomfort with bending, twisting motions, which increased flexion and extension in her back. IMPRESSION: 1. History of back pain exacerbated after lifting a wet mattress with her daughter, Jacquelin, in the basement. 2. History of pulmonary emphysema. 3. Anxiety. 4. Essential hypertension. 5. Carotid blockage 40% and carotids bilaterally. 6. Chronic fatigue syndrome. 7. Moderate episodes of major depressive disorder. 8. Peripheral vascular disease. 9. Elevated creatinine. 10. Chronic tobacco use. RECOMMENDATIONS: We discussed treatment options with the patient. At this juncture, we will continue with her medications. A script for her medications of hydrocodone 5 mg 1 p.o. b.i.d. have been rewritten. She will try the hydrocodone. Hopefully, she will continue to glean more benefit from that. She will also continue with nabumetone and Voltaren gel applied p.r.n. We would like to thank you for letting us participate in her care. We hope she continues to improve. By: [id number]. Nathan Cochran MD /USHA
== END ==
LOC: M.PC 05:03
DX: M54.5 Low back pain (principal); I10 Essential (primary) hypertension; F41.9 Anxiety disorder, unspecified; J43.9 Emphysema, unspecified; I73.9 Peripheral vascular disease, unspecified; R53.83 Other fatigue; G89.29 Other chronic pain; R79.89 Other specified abnormal findings of blood chemistry; F32.9 Major depressive disorder, single episode, unspecified; Z72.0 Tobacco use; Z79.899 Other long term (current) drug therapy

== ENCOUNTER → 2018-09-26 | Outpatient (CLI) | payer MEDICARE, MEDICAID ==
--- NOTE | 2018-09-30 07:10 | SLEEP ---
[address] [address] SLEEP STUDY REPORT Name: RIAN JIMENEZ Room: [facility]#: [id number] Admission: 09/26/18 Attend Phys: Elizabeth Cabrera Discharge: Date of : 62 Report #: [id number] THIS REPORT FOR: //name// CC: Piero Caballero This study has been reviewed in its entirety by a board certified sleep specialist DATE OF SERVICE: 09/29/2018 ATTENDING PHYSICIAN: Dr. Piero Soler. The patient is 58 years old who weighs 180 pounds with a BMI of 35.1. The patient's [place] score was 4. The patient underwent home sleep study performed by [facility]. Total recording time was 551 minutes. During the night study, the patient had no central or mixed apneas, but there were 45 obstructive apneas and 83 hypopneas. The patient's apnea hypopnea index was 14 per hour with a supine index of 14 per hour as well. Nocturnal oximetry study revealed an average oxygen saturation of 92% with the lowest of 65%. 39.8 minutes were spent with oxygen saturation of less than 90% and another 17 minutes with saturation of less than 85%. Mean heart rate was 86 beats per minute with a maximum of 105 beats per minute. IMPRESSION: 1. Mild sleep apnea-hypopnea syndrome with an apnea-hypopnea index of 14 per hour. 2. Nocturnal hypoxia secondary to obstructive sleep apnea. RECOMMENDATIONS: 1. The patient would benefit from treatment of sleep apnea with either an oral appliance as recommended by the dentist versus a trial of CPAP. 2. Once the patient is optimally treated, then follow up in 4-6 weeks to assess compliance with treatment and to document clinical improvement. 3. Weight loss is strongly advised. 4. Avoid FITTER WELDER depressants. 5. Cautioned regarding driving until symptoms of sleep apnea resolves with the above recommendations. <ELECTRONICALLY SIGNED> By: Bossman Romero MD 09/30/18 0710 [id number] Romero MD /nt
== END ==
LOC: M.SLEEPLAB 11:00
DX: G47.33 Obstructive sleep apnea (adult) (pediatric) (principal); R09.02 Hypoxemia; J44.9 Chronic obstructive pulmonary disease, unspecified; Z68.35 Body mass index [BMI] 35.0-35.9, adult

== ENCOUNTER → 2018-09-27 | Outpatient (CLI) | payer MEDICARE, MEDICAID ==
--- NOTE | ~2018-09-27 | PAINCON ---
[address] [address] PAIN MANAGEMENT CONSULTATION Name: RIAN JIMENEZ [id number] Admission: 09/27/18 Attend Phys: Andreas Cochran MD Discharge: Date of : 62 Report #: [id number] THIS REPORT FOR: //name// CC: Suzanne Cochran DATE OF SERVICE: 09/27/2018 CHIEF COMPLAINT: Here for renewal of pain medication. HISTORY: The patient is a 58-year-old female who has been seen in the pain clinic because of low back pain. As you recall, she has myofascial pain involving her low back and left hip area. She has undergone trigger point injections in the past and gleaned some benefit from these. As you may recall, she originally was lifting a wet mattress from the basement. She was carrying it upstairs with a family member. Notes pain and discomfort and has had pain and discomfort, which has been problematic since then. She also had a grandson who unfortunately committed suicide. They went the last week to that has been an emotional activity. Overall, things are going reasonably well. Feels that her medications are helpful and would like to continue with use of her medications. Rates her pain as a 2-3/10. She has had no complications from the use of the hydrocodone medication. Feels that the Nabumetone 750 mg is beneficial as well. ALLERGIES: No known drug allergies. CURRENT MEDICATIONS: Aspirin 81 mg, calcium, Tums, Reglan, metoclopramide 10 mg t.i.d., Crestor 40 mg, venlafaxine 75 mg, and tramadol 50 mg at bedtime. PAIN CLINIC ASSESSMENT/PQRS: 1. The patient is not being treated for rheumatoid arthritis or osteoarthritis. 2. Height 5 feet 3 inches, weight 186 pounds, BMI is 36.5. 3. Vital Signs: Blood pressure 127/72, heart rate 76, respiratory rate 16, room air saturation 97%, temperature 97.6. 4. Pain intensity 07/31. 5. Fall history: The patient has not fallen in the last 3 months. 6. Blood thinner. The patient is not on a blood thinning medication. 7. Hypertension. The patient is being treated for hypertension. 8. Opioids greater than 6 weeks. The patient received medication through the pain clinic. 9. Risk assessment tool, moderate for opioid use. 10. Functional assessment tool. 11. Recreational drug use. The patient denies use of recreational drugs. 12. Tobacco. The patient has smoked for the last 20 years. 13. Alcohol. The patient denies [place] [address] PAIN MANAGEMENT CONSULTATION Name: RIAN JIMENEZ Room: [facility]#: [id number] Admission: 09/27/18 Attend Phys: Andreas Cochran MD Discharge: Date of : 62 Report #: [id number] PHYSICAL EXAMINATION: GENERAL: The patient is well-developed, well-nourished white female. Appears her stated age. She is alert and oriented x 3. Affect is appropriate. Speech is fluent. HEENT: Normocephalic, atraumatic. Extraocular eye muscles intact. Sclerae nonicteric. The patient wears glasses. HEART: Regular rate. S1, S2. LUNGS: Clear to auscultation without rhonchi or rales. ABDOMEN: Nontender. Bowel sounds present. MUSCULOSKELETAL: Upper extremity muscle strength judged to be 5/5 for the major muscle groups in the lower extremity. The patient has pain and discomfort in the area of the left posterior superior iliac spine area. Palpation in the area of the gluteus doreen and the latissimus dorsi still are quite tender to palpation. The patient notes that the patient this can reproduce pain and discomfort. IMPRESSION: 1. History of back pain exacerbated after lifting a mattress with her daughter, Jacquelin, in the basement. 2. History of pulmonary emphysema. 3. Anxiety. 4. Essential hypertension. 5. Carotid blockage 40% of the carotids bilaterally. 6. Chronic fatigue syndrome. 7. Moderate episodes of major depressive disorder. 8. Peripheral vascular disease. 9. Elevation of creatinine. 10. Chronic tobacco use. RECOMMENDATIONS: We discussed treatment options with the patient. Risks and benefits of tobacco use was explained. The patient does have carotid artery disease and smoking. Does not improve. Has pain and discomfort in the lower portion of her back. The patient states she continues to do exercises. She does not feel that physical therapy at this juncture add too much. She continues with the exercises. We will continue with the Dema 5 mg 1 p.o. b.i.d. The patient will also continue with the nonsteroidal anti-inflammatory medications 750 mg b.i.d. She will call us if she has any concerns. We would like to thank you for letting us participate in her care. A script for her medications have been rewritten. By: [id number]. Nathan Cochran MD /PMT
== END ==
LOC: M.PC 04:38
DX: M54.5 Low back pain (principal); M79.18 Myalgia, other site; I10 Essential (primary) hypertension; I73.9 Peripheral vascular disease, unspecified; I65.23 Occlusion and stenosis of bilateral carotid arteries; F17.200 Nicotine dependence, unspecified, uncomplicated; R79.89 Other specified abnormal findings of blood chemistry; F33.1 Major depressive disorder, recurrent, moderate; Z87.09 Personal history of other diseases of the respiratory system; Z79.899 Other long term (current) drug therapy

== ENCOUNTER → 2018-10-25 | Outpatient (CLI) | payer MEDICARE, MEDICAID ==
--- NOTE | ~2018-10-25 | PAINCON ---
[address] [address] PAIN MANAGEMENT CONSULTATION Name: RIAN JIMENEZ Room: [facility] Radha#: [id number] Admission: 10/25/18 Attend Phys: Andreas Cochran MD Discharge: Date of : 62 Report #: [id number] THIS REPORT FOR: //name// CC: Suzanne Cochran DATE OF SERVICE: 10/25/2018 CHIEF COMPLAINT: Still having a lot of pain, at 5. HISTORY OF PRESENT ILLNESS: The patient is a 58-year-old female who has been followed in the pain clinic. As you recall, she has a history of low back pain. She has pain in her low back and has had worsening of her pain after lifting a wet mattress and bringing it upstairs with a family member. She has pain in the lower portion of her back. States that she was vacuuming a few days ago. Notes some pain in the lower portion of her back and some pain that radiated to the left side of her leg. She has some pain in her left knee. She feels that there is a numb type of pain in the lower portion of her back. She states that she is unable to go to physical therapy because she does not own a car. We have talked about using a tennis ball to roll on and massage the area. She states that she has used the tennis ball to help with the pain. She feels that gabapentin, which she has used in the past, she is not sure how successful that was. Noticed that she used this medication when she lived in [place]. She would like to have adjustment in her medication to help control her pain. ALLERGIES: No known drug allergies. CURRENT MEDICATIONS: Aspirin 81 mg, calcium, Tums, Reglan, metoclopramide 10 mg t.i.d., Crestor 40 mg, venlafaxine 75 mg, tramadol 50 mg at bedtime. PAIN CLINIC ASSESSMENT AND PQRS: 1. The patient is not being treated for rheumatoid arthritis or osteoarthritis. 2. Height 5 feet 3 inches, weight 188 pounds, BMI is 37. 3. Vital signs: Blood pressure 127/74, heart rate 74, respiratory rate 16, room air saturation 98%, temperature 97.8. 4. Pain intensity, 4-5/10. 5. Fall history. The patient has not fallen in the last 3 months. 6. Blood thinner. The patient is not on a blood thinning medication. 7. Hypertension. The patient is being treated for hypertension. 8. Opiates greater than 6 weeks. The [facility]. 9. Risk assessment tool, moderate for opioid use. 10. Functional assessment tool. 11. Recreational drug use. The patient denies use of recreational drugs. 12. Tobacco: The patient continues to smoke, has smoked for the last 20 years. We again discussed the benefits [place] [address] PAIN MANAGEMENT CONSULTATION Name: RIAN JIMENEZ Room: [facility]#: [id number] Admission: 10/25/18 Attend Phys: Andreas Cochran MD Discharge: Date of : 62 Report #: [id number] 13. Alcohol: The patient denies use of alcoholic beverages. PHYSICAL EXAMINATION: GENERAL: The patient is a well-developed, well-nourished white female. Appears her stated age. She is alert and oriented x 3. Her affect is appropriate. Speech is fluent. HEENT: Normocephalic, atraumatic. Extraocular eye muscles intact. The patient is wearing her glasses. HEART: Regular rate. S1, S2. LUNGS: Clear to auscultation without rhonchi or rales. ABDOMEN: Nontender. Bowel sounds present. MUSCULOSKELETAL: With muscle strength of 5/5 for the major muscle groups in the upper extremity. The patient has some pain and discomfort in the lower portion of her back near the posterior and superior iliac spine area. Palpation in this area does cause some pain and discomfort in the area of the gluteus doreen. Has some pain that radiates around the left buttocks area and down into the lateral portion of her leg. IMPRESSION: 1. History of back pain exacerbated after lifting the wet mattress with her daughter in the basement. 2. History of pulmonary emphysema. 3. Anxiety. 4. Essential hypertension. 5. Carotid blockage 40% bilateral. 6. Chronic fatigue syndrome. 7. Moderate episodes of major depressive disorder. 8. Peripheral vascular disease. 9. Elevation of creatinine. 10. Chronic tobacco use. RECOMMENDATIONS: We discussed treatment options with the patient. Again, we discussed the benefits of opioid medications. We explained to the patient that there is a limit to how effective these medications can be. The problem with opioid medication is development of tolerance as well as the possibility of problems with dependency. The patient is on Relafen. She is not sure, but feels that the medication might be helpful and feels that a higher dose might be helpful. We again discussed the patient's cardiac and vascular history. Does have 40% blockage of her carotids. I explained that the patients with nonsteroidal anti-inflammatory medications can be at a high risk for cardiac events. The patient states that she would like to try this medication at this level. We admonished or reminded her of the possible complications, which could be bleeding, increased GI irritability with use of the Relafen. She will take the Relafen 750 mg 1 p.o. b.i.d. She will also continue with Flexeril 10 mg 1 p.o. t.i.d. The patient does find Voltaren gel affect helpful. She will continue with hydrocodone 5 mg 1 [place] [address] PAIN MANAGEMENT CONSULTATION Name: RIAN JIMENEZ Brandy Room: [facility]#: [id number] Admission: 10/25/18 Attend Phys: Andreas Cochran MD Discharge: Date of : 62 Report #: [id number] We would like to thank you for letting us participate in her care. We hope she continues to improve. By: [id number]. Nathan Cochran MD /USHA
== END ==
LOC: M.PC 05:12
DX: M54.5 Low back pain (principal); J43.9 Emphysema, unspecified; I10 Essential (primary) hypertension; I73.9 Peripheral vascular disease, unspecified; I65.23 Occlusion and stenosis of bilateral carotid arteries; R53.82 Chronic fatigue, unspecified; R79.89 Other specified abnormal findings of blood chemistry; F41.9 Anxiety disorder, unspecified; F17.210 Nicotine dependence, cigarettes, uncomplicated; F32.1 Major depressive disorder, single episode, moderate; Z79.899 Other long term (current) drug therapy

== ENCOUNTER → 2018-11-03 | Outpatient (CLI) | payer MEDICARE, MEDICAID | LOC: M.ULTRA 08:57 | DX: R59.1 Generalized enlarged lymph nodes (principal); K11.1 Hypertrophy of salivary gland; H92.02 Otalgia, left ear ==

== ENCOUNTER → 2018-11-22 | Outpatient (CLI) | payer MEDICARE, MEDICAID ==
[~2018-11-22] MED LIST changes: +NORCO 5-325 TA1 EAC1 PO
--- NOTE | 2018-11-23 14:27 | PAINCON ---
[address] [address] PAIN MANAGEMENT CONSULTATION Name: RIAN JIMENEZ Room: [facility] Radha#: [id number] Admission: 11/22/18 Attend Phys: Andreas Cochran MD Discharge: Date of : 62 Report #: [id number] THIS REPORT FOR: //name// CC: Suzanne Cochran DATE OF SERVICE: 11/22/2018 PRIMARY CARE PHYSICIAN: Suzanne Caballero DO FOLLOWUP COMPLAINT: Here for medication renewal and I am having pain in my left hip. It is sore when I push on it. HISTORY: The patient is a 58-year-old female who has been followed in the pain clinic. She has a history of low back pain. She has undergone injections for myofascial pain in the low back area. She initially injured her back while carrying a wet mattress upstairs with a family member. She continues to have pain that radiates down into her low back area. She notes some improvement since the trigger point injections in the low back area, but still has pain, which is problematic. She has noted some increased pain and discomfort in the low back area with some pain in the left hip. Palpation in the area of the hip exacerbate her discomfort. Lying on the left hip is uncomfortable. She states that she has difficulty walking for a long period. She would like a walker with four wheels on it to help ambulate. States that she does continue to have low back pain and continues stretching exercises. Continues to use a tennis ball. Pain is worse when she is walking, sitting, standing as well as lifting and bending. Denies any problems with GI. The patient was on some chronic pain medications when she lived in [place]. CURRENT MEDICATIONS: Aspirin 81 mg, calcium, Tums, Reglan, metoclopramide 10 mg t.i.d., Crestor 40 mg, venlafaxine 75 mg, tramadol 50 mg. PAIN CLINIC ASSESSMENT/PQRS: 1. The patient has not been treated for rheumatoid arthritis or osteoarthritis. 2. Height 5 feet 0 inches, weight is 190 pounds, BMI is 37.3. 3. VITAL SIGNS: Blood pressure 140/72, heart rate 78, respiratory rate 16, room air saturation 95%. Pain intensity 6/10. 4. Fall history: The patient has not fallen in the last 3 months. 5. Blood thinner. The patient is not on a blood thinning medication. 6. Opioids greater than 6 weeks. The patient receives medication from one source, the pain clinic. 7. Risk assessment tool, moderate for opioid use. 8. Functional assessment tool. 9. Recreational drug use. The patient denies use of recreational drugs. 10. Tobacco: The patient continues to smoke. Has smoked for the last 20 years. Smokes 1 pack [place] [address] PAIN MANAGEMENT CONSULTATION Name: JIMENEZRIAN Brandy [id number] Admission: 11/22/18 Attend Phys: Andreas Cochran MD Discharge: Date of : 62 Report #: [id number] PHYSICAL EXAMINATION: GENERAL: The patient is a well-developed, well-nourished white female. Appears her stated age. She is alert and oriented x 3. Her affect is appropriate. Speech is fluent. HEENT: Normocephalic, atraumatic. Extraocular eye muscles intact. Sclerae nonicteric. Mucous membranes are moist. NECK: Without adenopathy or JVD. MUSCULOSKELETAL: Without significant scoliosis, kyphosis or lordosis. Palpation of the left greater trochanteric area reproduces pain and discomfort. Palpation in the low back area does still reveal a trigger point in the posterior superior iliac spine area, but the patient is experiencing some pain which is radiating down into her right buttocks area. Palpation in this area too can reproduce some pain and discomfort. IMPRESSION: 1. History of back pain exacerbated after lifting the wet mattress with her daughter in the basement. 2. History of pulmonary emphysema. 3. Anxiety. 4. Essential hypertension. 5. Carotid blockage 40%. 6. Chronic fatigue syndrome. 7. Moderate episodes of major depressive disorder. 8. Peripheral vascular disease. 9. Elevation of creatinine. 10. Chronic tobacco use. RECOMMENDATIONS: We discussed the treatment option with the patient. Again, we will continue with her current medications. She feels that the hydrocodone is beneficial. Feels that the Flexeril medication is helpful as well. Finds that the diclofenac is helpful. Continues nabumetone 750 mg b.i.d. We have discussed the risks and benefits of opioid therapy with the patient. Some patients can develop problems with opioids with addiction. At this point, the patient feels that she has used the medication as prescribed. We will continue with her medication. We will continue helping with the pain control using a complex medication regimen using opioids. The patient will call us if she has any concerns. A script has been written for cyclobenzaprine 10 mg, Voltaren gel 1%, hydrocodone 5/325 and nabumetone 750 mg b.i.d. The patient is concerned about her ambulation. She feels that a walker might be beneficial. She stated that a rollator might be beneficial. She will call us in the near future should she have any concerns. [address] [address] PAIN MANAGEMENT CONSULTATION Name: RIAN JIMENEZ Room: [facility] Radha#: [id number] Admission: 11/22/18 Attend Phys: Andreas Cochran MD Discharge: Date of : 62 Report #: [id number] We would like to thank you for letting us participate in her care. We hope she continues to improve. <ELECTRONICALLY SIGNED> By: Andreas Cochran MD 11/23/18 1427 1559 0245N. Nathan Cochran MD /PMT
--- NOTE | 2018-11-23 14:27 | PROC ---
[address] [address] PROCEDURE REPORT Name: RIAN JIMENEZ Room: [facility] Radha#: [id number] Admission: 11/22/18 Attend Phys: Andreas Cochran MD Discharge: Date of : 62 Report #: [id number] THIS REPORT FOR: //name// CC: Suzanne Cochran DATE OF SERVICE: 11/22/2018 PROCEDURE NOTE: We discussed treatment options with the patient. Palpation of the left greater trochanteric area indicates left trochanteric bursitis. The patient also has some myofascial pain in the left and right posterior superior iliac spine albeit less than before the last trigger point injections. She feels there is some discomfort radiating into the left buttocks area as well. Palpation in the left greater trochanteric area. The patients vocalizing and demeanor indicated severe pain. We explained the risks and benefits of a trochanteric bursa injection and the patient elects to proceed. PROCEDURE NOTE: The patient was taken to the procedure area. She was then assisted in getting on the examination table. Fluoroscopy was used to identify the left greater trochanteric area. Palpation in this area did reproduce the patient's discomfort. Her left hip was sterilely prepped with a chlorhexidine solution. It was allowed to dry. A 25-gauge needle was then used to anesthetize the skin with 0.5% bupivacaine, 1 mL. A 20-gauge spinal needle was then advanced into the area of the discomfort. The patient states this did reproduce her discomfort. Aspiration was negative. A total of 40 mg Depo-Medrol, 40 mg triamcinolone with 8 mL of 0.5% bupivacaine was injected. The patient tolerated the procedure well. There were no complications. She will follow up in the future as needed. <ELECTRONICALLY SIGNED> By: Andreas Cochran MD 11/23/18 1427 1602 0338N. Nathan Cochran MD /[facility]
== END | disposition home or self-care (01) ==
LOC: M.PC 05:10
DX: M70.62 Trochanteric bursitis, left hip (principal); G89.29 Other chronic pain; I10 Essential (primary) hypertension; I73.9 Peripheral vascular disease, unspecified; F17.210 Nicotine dependence, cigarettes, uncomplicated; F32.1 Major depressive disorder, single episode, moderate; R53.82 Chronic fatigue, unspecified; F41.9 Anxiety disorder, unspecified; Z79.899 Other long term (current) drug therapy; Z79.82 Long term (current) use of aspirin; Z98.890 Other specified postprocedural states

== ENCOUNTER → 2018-12-20 | Outpatient (CLI) | payer MEDICARE, MEDICAID ==
--- NOTE | ~2018-12-20 | PAINCON ---
[address] [address] PAIN MANAGEMENT CONSULTATION Name: RIAN JIMENEZ Room: [facility] EMILY Garcia#: [id number] Admission: 12/20/18 Attend Phys: Andreas Cochran MD Discharge: Date of : 62 Report #: [id number] THIS REPORT FOR: //name// CC: Suzanne Cochran DATE OF SERVICE: 12/20/2018 CHIEF COMPLAINT: Here for medication management. HISTORY: The patient is a 58-year-old female who has been followed in the pain clinic because of chronic back pain. She has had some chronic pain for a number of months and prior to that some pain a few years ago. At this point, she is having pain, which she describes as a 4/10. It involves her low back. She did have pain involving her left hip. The injection in the left hip at the last visit was quite helpful. She is having very little pain in this area as well. Continues to have some pain in the low back area, which is somewhat mid back. She is able to place her thumb over the left lower portion of her back and reproduce a component of the pain. She states that she is continuing to stretch. She is using a tennis ball to roll on the affected area. She has been unable to be evaluated by physical therapy because of lack of transportation. States that she does not have a car. She would like to have the hydrocodone renewed. She feels that the Flexeril medication is of some benefit. She is not having any problems with the Nabumetone or the diclofenac gel. She has returned today with the hope of having a renewal of her medications. ALLERGIES: No known drug allergies. MEDICATIONS: Aspirin 81 mg, calcium, Tums, Reglan, metoclopramide 10 mg t.i.d., Crestor 40 mg, venlafaxine 75 mg, tramadol 50 mg, hydrocodone 5/325 one p.o. b.i.d., Flexeril 10 mg t.i.d., diclofenac gel 2 g q.i.d. to the upper extremity, and Nabumetone 750 mg b.i.d. PAIN CLINIC ASSESSMENT/PQRS: 1. The patient is not being treated for rheumatoid arthritis. She is not being treated for osteoarthritis. 2. Height 5 feet, 0 inches, weight 190 pounds, BMI 37.2. 3. VITAL SIGNS: Blood pressure 119/80, heart rate 81, respiratory rate 20, room air saturation 97%, temperature 98.0. 4. Pain intensity 4/10. 5. Fall history: The patient has not fallen in the last 3 months. 6. Blood thinner. The patient is not on a blood thinning medication. 7. Hypertension. The patient is receiving opioids for help control the pain through the pain clinic. 8. Risk assessment tool, moderate for opioid use. 9. Functional [place] [address] PAIN MANAGEMENT CONSULTATION Name: RIAN JIMENEZ Room: [facility]#: [id number] Admission: 12/20/18 Attend Phys: Andreas Cochran MD Discharge: Date of : 62 Report #: [id number] 10. Recreational drug use. The patient denies use of recreational drugs. 11. Tobacco: The patient continues to smoke. The patient has smoked for the last 20 years. Smokes 1 pack of cigarettes per day. Again, smoking cessation has been discussed with benefits ____ to the patient. PHYSICAL EXAMINATION: GENERAL: The patient is a well-developed, well-nourished white female. Appears her stated age. She is alert and oriented x 3. Her affect is appropriate. Speech is fluent. HEENT: Normocephalic, atraumatic. Extraocular eye muscles intact. The patient is wearing glasses. NECK: Without adenopathy or JVD. HEART: Regular rate. MUSCULOSKELETAL: The patient without significant scoliosis, kyphosis or lordosis. ABDOMEN: Nontender. The patient has less pain on the left greater trochanteric area. It is improved. BACK: The patient has pain in the lower back in the area of the left posterior superior iliac spine near the latissimus dorsi and gluteus doreen. Palpation in this area does reproduce pain and discomfort. IMPRESSION: 1. History of back pain exacerbated after lifting wet mattress with her daughter and carrying it from the basement. 2. History of pulmonary emphysema. 3. Anxiety. 4. Essential hypertension. 5. Carotid blockage 40%. 6. Chronic fatigue syndrome. 7. Moderate episodes of major depressive disorder. 8. Peripheral vascular disease. 9. Elevated creatinine. 10. Chronic tobacco use. RECOMMENDATION: We discussed treatment options with the patient. At this juncture, we discussed the risks and benefits of opioid use. The patient has noted an improvement in the myofascial pain in the left trochanteric area after the last injection. She continues to have pain, which is problematic in the back. Activities of daily living such as bending, stretching, walking, standing, going up and down stairs all cause problematic. She still uses heat as well as rest. She has used a tennis ball to help massage the area. We have again discussed the benefits of physical therapy. I think she should see a physical therapist who could at least direct her and do activities that might be more helpful. At this time, she declines another injection. She may consider one in the near future. We would like to thank you for letting us participate in her care. We will continue to write for her medications. We have stressed [address] [address] PAIN MANAGEMENT CONSULTATION Name: RIAN JIMENEZ Room: [facility]#: [id number] Admission: 12/20/18 Attend Phys: Andreas Cochran MD Discharge: Date of : 62 Report #: [id number] the benefits of smoking cessation as well as physical exam evaluation. The patient has a desire for a rolling walker. We would like to thank you for letting us participate in her care. We hope she continues to improve. By: 1508 1556N. Nathan Cochran MD /nt
== END ==
LOC: M.PC 05:05
DX: Z76.0 Encounter for issue of repeat prescription (principal); M54.9 Dorsalgia, unspecified; G89.29 Other chronic pain; I10 Essential (primary) hypertension; R53.82 Chronic fatigue, unspecified; F41.9 Anxiety disorder, unspecified; F32.9 Major depressive disorder, single episode, unspecified; F17.200 Nicotine dependence, unspecified, uncomplicated; Z79.82 Long term (current) use of aspirin; Z79.899 Other long term (current) drug therapy; Z79.891 Long term (current) use of opiate analgesic

== ENCOUNTER → 2020-06-27 | Outpatient (CLI) | payer OTHER, MEDICAID ==
[~2020-06-27] MED LIST changes: +BRINTELLIX10 MG PO; +HYDROCODON-ACE1 EA11 PO; +HYDROCODON-ACE1 EAC7 PO; +RELAFEN750 M1 PO
== END ==
LOC: M.PC 08:04
PROVIDERS: ATTEND Anesthesiology Pain Medicine
DX: M25.511 Pain in right shoulder (principal); M25.512 Pain in left shoulder; M25.552 Pain in left hip; F41.9 Anxiety disorder, unspecified; I10 Essential (primary) hypertension; R53.83 Other fatigue; I73.9 Peripheral vascular disease, unspecified; F32.9 Major depressive disorder, single episode, unspecified; R79.89 Other specified abnormal findings of blood chemistry; F17.200 Nicotine dependence, unspecified, uncomplicated; Z88.8 Allergy status to other drugs, medicaments and biological substances; Z79.899 Other long term (current) drug therapy

== ENCOUNTER → 2020-07-17 | Outpatient (CLI) | payer OTHER, MEDICAID | LOC: M.MRI 07:47 | PROVIDERS: ATTEND Family Medicine | DX: M50.10 Cervical disc disorder with radiculopathy, unspecified cervical region (principal); M48.02 Spinal stenosis, cervical region; M47.812 Spondylosis without myelopathy or radiculopathy, cervical region ==

== ENCOUNTER → 2020-07-25 | Outpatient (CLI) | payer OTHER, MEDICAID | LOC: M.PC 07:47 | PROVIDERS: ATTEND Anesthesiology Pain Medicine | DX: M50.121 Cervical disc disorder at C4-C5 level with radiculopathy (principal); M25.552 Pain in left hip; F41.9 Anxiety disorder, unspecified; I10 Essential (primary) hypertension; R53.83 Other fatigue; I73.9 Peripheral vascular disease, unspecified; R79.89 Other specified abnormal findings of blood chemistry; Z72.0 Tobacco use; Z87.09 Personal history of other diseases of the respiratory system; M50.10 Cervical disc disorder with radiculopathy, unspecified cervical region ==

== ENCOUNTER → 2020-08-22 | Outpatient (CLI) | payer OTHER, MEDICAID ==
[~2020-08-22] MED LIST changes: +AMITRIPTYLINE H10 M1 PO; -ASPIR 8181 MG PO; +ASPIRIN EC325 MG PO
== END ==
LOC: M.PC 07:51
PROVIDERS: ATTEND Anesthesiology Pain Medicine
DX: M50.322 Other cervical disc degeneration at C5-C6 level (principal); M48.02 Spinal stenosis, cervical region; M25.552 Pain in left hip; F41.9 Anxiety disorder, unspecified; I10 Essential (primary) hypertension; R53.1 Weakness; F32.1 Major depressive disorder, single episode, moderate; I73.9 Peripheral vascular disease, unspecified; R79.89 Other specified abnormal findings of blood chemistry; Z72.0 Tobacco use; Z86.711 Personal history of pulmonary embolism; Z88.8 Allergy status to other drugs, medicaments and biological substances; Z79.899 Other long term (current) drug therapy

== ENCOUNTER → 2020-09-19 | Outpatient (CLI) | payer OTHER, MEDICAID ==
[~2020-09-19] MED LIST changes: +DOXEPIN 10 MG C10 M1 PO
== END ==
LOC: M.PC 07:59
PROVIDERS: ATTEND Anesthesiology Pain Medicine
DX: M47.22 Other spondylosis with radiculopathy, cervical region (principal); M50.322 Other cervical disc degeneration at C5-C6 level; M48.02 Spinal stenosis, cervical region; M99.51 Intervertebral disc stenosis of neural canal of cervical region; F41.9 Anxiety disorder, unspecified; I10 Essential (primary) hypertension; I65.29 Occlusion and stenosis of unspecified carotid artery; F32.1 Major depressive disorder, single episode, moderate; I73.9 Peripheral vascular disease, unspecified; R74.8 Abnormal levels of other serum enzymes; R53.82 Chronic fatigue, unspecified; M54.9 Dorsalgia, unspecified; Z72.0 Tobacco use; Z87.09 Personal history of other diseases of the respiratory system

== ENCOUNTER → 2020-10-17 | Outpatient (CLI) | payer OTHER, MEDICAID | LOC: M.PC 08:01 | PROVIDERS: ATTEND Anesthesiology Pain Medicine | DX: M54.12 Radiculopathy, cervical region (principal); F41.9 Anxiety disorder, unspecified; M54.9 Dorsalgia, unspecified; I10 Essential (primary) hypertension; R53.82 Chronic fatigue, unspecified; I65.29 Occlusion and stenosis of unspecified carotid artery; F32.1 Major depressive disorder, single episode, moderate; I73.9 Peripheral vascular disease, unspecified; R79.89 Other specified abnormal findings of blood chemistry; Z72.0 Tobacco use; Z87.09 Personal history of other diseases of the respiratory system ==

== ENCOUNTER → 2020-11-14 | Outpatient (CLI) | payer OTHER, MEDICAID ==
[~2020-11-14] MED LIST changes: +DOXEPIN 25 MG C25 M1 PO
== END ==
LOC: M.PC 08:30
PROVIDERS: ATTEND Anesthesiology Pain Medicine
DX: G89.29 Other chronic pain (principal); M54.12 Radiculopathy, cervical region; E78.5 Hyperlipidemia, unspecified; M17.11 Unilateral primary osteoarthritis, right knee; I10 Essential (primary) hypertension; I65.29 Occlusion and stenosis of unspecified carotid artery; R53.82 Chronic fatigue, unspecified; I73.9 Peripheral vascular disease, unspecified; R79.82 Elevated C-reactive protein (CRP); J43.9 Emphysema, unspecified; F41.8 Other specified anxiety disorders; F17.200 Nicotine dependence, unspecified, uncomplicated; Z68.39 Body mass index [BMI] 39.0-39.9, adult; Z79.891 Long term (current) use of opiate analgesic; Z79.899 Other long term (current) drug therapy

== ENCOUNTER → 2020-12-12 | Outpatient (CLI) | payer OTHER, MEDICAID | LOC: M.PC 08:19 | PROVIDERS: ATTEND Anesthesiology Pain Medicine | DX: M54.12 Radiculopathy, cervical region (principal); F41.9 Anxiety disorder, unspecified; I10 Essential (primary) hypertension; I65.29 Occlusion and stenosis of unspecified carotid artery; R53.82 Chronic fatigue, unspecified; F32.1 Major depressive disorder, single episode, moderate; I73.9 Peripheral vascular disease, unspecified; R74.8 Abnormal levels of other serum enzymes; Z72.0 Tobacco use; Z87.09 Personal history of other diseases of the respiratory system; Z79.82 Long term (current) use of aspirin; Z79.891 Long term (current) use of opiate analgesic; Z79.899 Other long term (current) drug therapy ==

== ENCOUNTER → 2021-01-09 | Outpatient (CLI) | payer OTHER, MEDICAID | LOC: M.PC 07:43 | PROVIDERS: ATTEND Anesthesiology Pain Medicine | DX: M54.12 Radiculopathy, cervical region (principal); F41.9 Anxiety disorder, unspecified; I10 Essential (primary) hypertension; R53.82 Chronic fatigue, unspecified; F32.1 Major depressive disorder, single episode, moderate; Z72.0 Tobacco use; Z86.711 Personal history of pulmonary embolism ==

== ENCOUNTER → 2021-02-13 | Outpatient (CLI) | payer OTHER, MEDICAID ==
[~2021-02-13] MED LIST changes: +.
== END ==
LOC: M.PC 08:04
PROVIDERS: ATTEND Anesthesiology Pain Medicine
DX: M54.12 Radiculopathy, cervical region (principal); I10 Essential (primary) hypertension; R53.82 Chronic fatigue, unspecified; I73.9 Peripheral vascular disease, unspecified; F34.9 Persistent mood [affective] disorder, unspecified; Z79.82 Long term (current) use of aspirin; Z79.899 Other long term (current) drug therapy

== ENCOUNTER → 2021-03-13 | Outpatient (CLI) | payer OTHER, MEDICAID | LOC: M.PC 07:53 | PROVIDERS: ATTEND Anesthesiology Pain Medicine | DX: M54.12 Radiculopathy, cervical region (principal); M25.562 Pain in left knee; M25.552 Pain in left hip; I10 Essential (primary) hypertension; I73.9 Peripheral vascular disease, unspecified; F41.9 Anxiety disorder, unspecified; R53.82 Chronic fatigue, unspecified; F34.89 Other specified persistent mood disorders; Z72.89 Other problems related to lifestyle; Z79.82 Long term (current) use of aspirin; Z79.899 Other long term (current) drug therapy ==

== ENCOUNTER → 2021-03-24 | Outpatient (CLI) | payer OTHER, MEDICAID | LOC: M.RAD 03-19 11:47 | PROVIDERS: ATTEND Family Medicine | DX: Z12.31 Encounter for screening mammogram for malignant neoplasm of breast (principal); Z00.00 Encounter for general adult medical examination without abnormal findings; Z78.0 Asymptomatic menopausal state; M85.88 Other specified disorders of bone density and structure, other site ==

== ENCOUNTER → 2021-05-08 | Outpatient (CLI) | payer OTHER, MEDICAID ==
[~2021-05-08] MED LIST changes: -ASPIRIN EC325 MG PO; +ASPIRIN EC81 M1 PO; -BRINTELLIX10 MG PO; +BRINTELLIX20 MG PO
== END ==
LOC: M.PC 08:05
PROVIDERS: ATTEND Anesthesiology Pain Medicine
DX: M50.122 Cervical disc disorder at C5-C6 level with radiculopathy (principal); I10 Essential (primary) hypertension; I73.9 Peripheral vascular disease, unspecified; I65.29 Occlusion and stenosis of unspecified carotid artery; E66.8 Other obesity; F34.89 Other specified persistent mood disorders; Z72.0 Tobacco use; Z79.82 Long term (current) use of aspirin; Z79.899 Other long term (current) drug therapy

== ENCOUNTER 2021-06-09 13:33 | Emergency (ER) | payer OTHER, MEDICAID ==
[~2021-06-09] VITALS: Ht 154.9 cm; Wt 86.6 kg
[2021-06-09] MEDS ORDERED: PROAIR HFA8.5 GM INH (14:21)
[2021-06-09 16:25] LABS: URINE BILIRUBIN NEGATIVE (Negative); URINE BLOOD NEGATIVE (Negative); URINE CLARITY CLEAR; URINE COLOR YELLOW; URINE GLUCOSE-RANDOM NEGATIVE (Negative); URINE KETONES NEGATIVE (Negative); URINE LEUKOCYTES NEGATIVE (Negative); URINE NITRITE NEGATIVE (Negative); URINE PROTEIN 1+ (Negative); URINE SPECIFIC GRAVITY 1.015 (1.005-1.030); URINE UROBILINOGEN 0.2 E.U./dl (0.2-1.0)
[2021-06-09 17:05] LABS: ABSOLUTE BASOPHILS 0.1 thou/uL (0.0-0.2); ABSOLUTE EOSINOPHILS 0.1 thou/uL (0.0-0.7); ABSOLUTE LYMPHOCYTES 2.2 thou/uL (0.8-5.3); ABSOLUTE MONOCYTES 0.7 thou/uL (0.0-1.2); ABSOLUTE NEUTROPHILS 12.7 thou/uL (1.6-8.1); BASOPHILS 0.3 %; EOSINOPHILS 0.4 %; HEMATOCRIT 39.6 % (37.0-47.0); HEMOGLOBIN 13.1 gm/dL (12.0-15.0); MCH 28.3 pg (26.0-34.0); MCV 85.7 fL (80.0-100.0); MONOCYTES 4.2 %; MPV 8.3 fl. (7.2-11.1); NUCLEATED RBCS 0 /100WBC; PLATELET COUNT* 231 thou/uL (150-400); POLYS 81.1 %; RBC 4.62 mil/uL (4.20-5.00); RDW-CV 14.5 % (10.5-14.5); WBC 15.7 thou/uL (4.0-11.0)
[2021-06-09 17:10] LABS: CALCIUM 8.6 mg/dL (8.5-10.1); CREATININE 1.2 mg/dL (0.6-1.3); POTASSIUM 4.1 mmol/L (3.5-5.1)
[2021-06-09 17:14] LABS: ALBUMIN 3.2 g/dL (3.4-5.0); TOTAL BILIRUBIN 0.6 mg/dL (<0.1-1.0); TOTAL PROTEIN 7.2 g/dL (6.4-8.2)
[2021-06-09] MEDS ORDERED: FLEXERIL PO (20:17)
[2021-06-09 20:23] VITALS: BP 138/98
--- NOTE | 2021-06-10 13:08 | EKG ---
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
== END 2021-06-09 20:24 | disposition home or self-care (01) ==
LOC: M.ERS 13:33
PROVIDERS: Physician Assistant
DX: M54.59 Other low back pain (principal); J44.9 Chronic obstructive pulmonary disease, unspecified; F32.9 Major depressive disorder, single episode, unspecified; I10 Essential (primary) hypertension; E78.00 Pure hypercholesterolemia, unspecified; F17.210 Nicotine dependence, cigarettes, uncomplicated; Z98.51 Tubal ligation status; Z79.899 Other long term (current) drug therapy

== ENCOUNTER → 2021-07-03 | Outpatient (CLI) | payer OTHER, MEDICAID ==
[~2021-07-03] MED LIST changes: +PROAIR HFA8.5 GM INH
== END ==
LOC: M.PC 07:56
PROVIDERS: ATTEND Anesthesiology Pain Medicine
DX: M54.12 Radiculopathy, cervical region (principal); M25.552 Pain in left hip; I10 Essential (primary) hypertension; E78.00 Pure hypercholesterolemia, unspecified; M17.11 Unilateral primary osteoarthritis, right knee; J44.9 Chronic obstructive pulmonary disease, unspecified; F41.8 Other specified anxiety disorders; F34.89 Other specified persistent mood disorders; I73.9 Peripheral vascular disease, unspecified; Z72.0 Tobacco use